=== PATIENT | male | born 1965 | race American Indian/Alaskan Native ===

== ENCOUNTER 2018-08-08 11:09 | Day surgery (SDC) | payer MEDICARE ==
[2018-08-08] MEDS ORDERED: HEPARIN/NS 5000 UNIT/500ML(CATH LAB) 1,000 ML IR ONE (14:29)
[2018-08-08] MEDS ORDERED: XYLOCAINE 2% INFILTRATI ONE (14:29)
[2018-08-08] MEDS ORDERED: NACL 0.9% 500 ML 500 ML ONE (14:30)
[2018-08-08] MEDS: SUBLIMAZE ONE ×2 (14:44→15:43)
[2018-08-08] MEDS: VERSED ONE ×2 (14:44→15:43)
[2018-08-08] MEDS: HEPARIN 10,000 UNITS/10 ML ONE ×2 (15:06→15:51)
--- NOTE | 2018-08-08 17:19 | Short Stay Summary ---
Short Stay Documentation Date of service: 08/08/18 Narrative H&P: See H&P - History H&P: obtained from office - Allergies and Medications Current Medications: Allergies No Known Allergies Allergy (Verified 08/06/13 00:06) Home Medications Medication Instructions Recorded Confirmed Last Taken Type Sevelamer HCl [Renagel] 800 mg PO TID #0 04/17/17 08/08/18 08/08/18 05:45 History Metoprolol [Lopressor TAB] 50 mg PO BID #60 tablet 07/06/17 08/08/18 08/08/18 05:45 Rx 50mg amLODIPine [Norvasc] 10 mg PO DAILY #30 tablet 07/06/17 08/08/18 08/08/18 05:45 Rx 10mg cloNIDine [Catapres] 0.2 mg PO BID #60 tablet 07/06/17 08/08/18 08/08/18 05:45 Rx hydrALAZINE [Apresoline TAB] 100 mg PO Q8HR #90 tab 07/06/17 08/08/18 08/08/18 05:45 Rx 100mg Aspirin [Adult Aspirin] 81 mg PO DAILY 08/08/18 08/08/18 08/07/18 History 81mg - Brief post op/procedure progress note Date of procedure: 08/08/18 Pre-op diagnosis: Complications of Dialysis Access Post-op diagnosis: same Procedure: 1. Access Right Arm AV Fistula with 7 Danish Sheath Venous 2. Diagnostic Fistulogram Central Venogram 3. Angioplasty of Right Subclavian vein with 12 x 40 Lutonix Drug Coated Balloon 4. Angioplasty of Right Innominate Vein with 12 x 40 Lutonix Drug Coated Balloon 5. Angioplasty of Superior Vena Cava with 12 x 40 Conquest Balloon 6. Radiologic Supervision and Interpretation Anesthesia: local, other (IV sedation) Surgeon: RANDALL DAVIS Estimated blood loss: minimal Pathology: none Condition: stable - Disposition Condition at discharge: Good Disposition: [id number] TO HOME OR SELFCARE Short Stay Discharge Plan Activity: other Wound: open to air, keep clean and dry, remove dressing (24 hours), other (remove suture in dialysis on Saturday by pulling the longer of the 2 strings)
--- NOTE | 2018-08-08 17:23 | Operative Report ---
Operative Report Operative Report: Date of Procedure: 08/08/2018 Pre-operative Diagnosis: Complications of Dialysis Access Post-operative Diagnosis: Same Procedure(s): 1. Access Right Arm AV Fistula with 7 Mauritian Sheath Venous 2. Diagnostic Fistulogram Central Venogram 3. Angioplasty of Right Subclavian vein with 12 x 40 Lutonix Drug Coated Balloon 4. Angioplasty of Right Innominate Vein with 12 x 40 Lutonix Drug Coated Balloon 5. Angioplasty of Superior Vena Cava with 12 x 40 Conquest Balloon 6. Radiologic Supervision and Interpretation Surgeon: Jef Byrd M.D. Sizer Machine: None Anesthesia: Local and IV Sedation EBL: Minimal Counts: Correct Complications: None Condition: Stable Findings: Occlusion of the right subclavian, innominate, and proximal superior vena cava. All vessels patent with less than 15% residual stenosis after intervention. Specimen: None Indication: The patient is a 52-year-old male with a history of end-stage renal disease on hemodialysis through a right arm Kandice fistula. 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 This is causing severe swelling of the right arm with ulceration over his fistula. He is in need of intervention to reduce the swelling and hopefully heal the ulceration in hopes of salvaging the fistula. He was given the risk, benefits, and alternative procedures and consented to the procedure. Description of Procedure: The patient was brought into the wheelabrator operator and laid in supine position. After a timeout was performed his right arm was prepped and draped in normal sterile fashion. Lidocaine was used to anesthetize the skin overlying the fistula in the proximal forearm and micropuncture technique was used to access the fistula towards the venous outflow. A 7 Mauritian 4 cm sheath was then placed by Seldinger technique. I performed a fistulogram revealing the area of occlusion of the right subclavian vein. The fistula was patent without any flow-limiting stenosis. Both the basilic vein and cephalic veins were patent without any flow-limiting stenosis. There were collaterals through the neck that appeared to fill the distal superior vena cava to provide the outflow for the fistula. I advanced a 0.035 Glidewire and vertebral catheter to the level of the occlusion. I exchanged the vertebral catheter for a 6 Mauritian JR4 guide catheter and 5 Mauritian Navicross catheter and made multiple attempts with various wires to cross the occluded vessels without success. I eventually exchanged the short 7 Mauritian sheath for a 7 Mauritian 65 cm destination sheath which I advanced to the level of the occlusion. I then reinserted the JR4 guide catheter with the Navicross catheter as well as a 0.035 Advantage wire and was eventually able to traverse the occluded subclavian vein as well as the occluded right innominate vein and reentered in the superior vena cava which was confirmed by venogram. I advanced the wire and catheter into the inferior vena cava and then was able to predilate the occluded subclavian vein with a 8 x 80 Evercross balloon. I initially attempted to advance this into the innominate vein however the occlusion was too tight to advance the balloon so I reinserted the Navicross catheter and exchanged the Advantage wire for a 0.018 V18 wire. I then predilated the right innominate vein and distal superior vena cava with a 7 x 100 Benjamin balloon. After predilated the vessels I ballooned all the vessels with a 12 x 40 Conquest balloon. The superior vena cava had less than 15% residual stenosis however the innominate vein as well as the subclavian had approximately 50% residual stenosis so I exchanged the 7 Mauritian sheath for a 9 Mauritian sheath and performed additional angioplasty with 12 x 40 Lutonix Drug Coated Balloons in both vessels with 3 minute inflations. This resulted in less than 15% residual stenosis in both vessels. At this point I removed the balloon and wire and used 3-0 Ethilon in a slipknot fashion to close the entry site after removing the sheath. I then placed a sterile dressing over the entry site and the patient was transported to the recovery area in stable condition.
[2018-08-08 18:44] VITALS: BP 152/84
== END 2018-08-08 18:00 | disposition home or self-care (01) ==
LOC: CATHLABREC 11:09
PROVIDERS: ATTEND Surgery Vascular Surgery
DX: T82.590A Other mechanical complication of surgically created arteriovenous fistula, initial encounter (principal); I13.2 Hypertensive heart and chronic kidney disease with heart failure and with stage 5 chronic kidney disease, or end stage renal disease; I50.9 Heart failure, unspecified; N18.6 End stage renal disease; I25.2 Old myocardial infarction; G47.30 Sleep apnea, unspecified; E66.9 Obesity, unspecified; Z98.890 Other specified postprocedural states; Z79.82 Long term (current) use of aspirin; Z79.899 Other long term (current) drug therapy
CPT/HCPCS: 36415; 36902; 36907; 84132; 99156; 99157; C1725; C1769; C1887; C1894; C2623; J1644; J2250; J3010; J7040; Q9967

== ENCOUNTER 2018-09-22 13:42 | Inpatient (IN) | payer MEDICARE ==
--- NOTE | 2018-09-22 13:52 | Event Note ---
ED Screening Note ED Screening Note: pt states he had a blockage in the artery in his right arm, states had a surgical procedure a month ago states now has an infection in the RUE at his fistula site states he was called by [facility] for positive blood cultures from last week no fever states there was some drainage from the fistula site but has since stopped last had dialysis on 09/19/18 This initial assessment/diagnostic orders/clinical plan/treatment(s) is/are subject to change based on patients health status, clinical progression and re- assessment by fellow clinical providers in the ED. Further treatment and workup at subsequent clinical providers discretion. Patient/guardian urged not to elope from the ED as their condition may be serious if not clinically assessed and managed. Initial orders include: labs
[2018-09-22 14:43] LABS: Basophils # (Auto) 0.1 K/mm3 (0.0-0.1); Basophils % (Auto) 1.3 % (0.0-1.8); Eosinophils # (Auto) 0.4 K/mm3 (0.0-0.4); Eosinophils % (Auto) 6.4 % (0.0-4.3); Hematocrit 33.2 % (35.5-45.6); Lymphocytes # (Auto) 0.7 K/mm3 (1.2-5.4); Lymphocytes % (Auto) 11.6 % (13.4-35.0); Mean Corpuscular HGB Conc 33 % (32-34); Mean Corpuscular Volume 104 fl (84-94); Monocytes # (Auto) 0.6 K/mm3 (0.0-0.8); Monocytes % (Auto) 9.3 % (0.0-7.3); Platelet Count 171 K/mm3 (140-440); Red Cell Distribution Width 17.1 % (13.2-15.2)
--- NOTE | 2018-09-22 19:02 | Emergency Department Report ---
- General Chief Complaint: Extremity Injury, Upper Stated Complaint: INFECTION Time Seen by Provider: 09/22/18 13:49 Source: patient Mode of arrival: Ambulatory Limitations: No Limitations - History of Present Illness Initial Comments: Mr. Byrd is a very pleasant 53-year-old male with history of hypertension, end- stage renal disease, congestive heart failure. He last received dialysis on Saturday. He receives dialysis at [facility], [place], operated by [facility]. His fan balancer is Dr. Lilia Lawson. He has an infected right forearm hemodialysis access. The access was placed here at our facility. Patient was told that he had +blood cultures by dialysis nurse,. Initially had a plan to have the Vas-Cath placed at the access center. Considering infected HD access, he was referred by nephrology group to the emergency department for further treatment and admission. His fan balancer is Dr. Hortencia Hartman I reviewed electronic medical record. Vascular surgeon Dr. Jef Byrd performed angioplasty of the right subclavian and innominate veins. Also angioplasty of the SVC was performed. The procedure was performed 08/08/2018. -: Gradual, days(s) (3-4) Location: other (right foream) Place: home Context: other (dialysis infection) - Related Data Home Medications Medication Instructions Recorded Confirmed Last Taken Sevelamer HCl [Renagel] 800 mg PO TID #0 04/17/17 08/08/18 08/08/18 05:45 Aspirin [Adult Aspirin] 81 mg PO DAILY 08/08/18 08/08/18 08/07/18 81mg Previous Rx's Medication Instructions Recorded Last Taken Type Metoprolol [Lopressor TAB] 50 mg PO BID #60 tablet 07/06/17 08/08/18 05:45 Rx 50mg amLODIPine [Norvasc] 10 mg PO DAILY #30 tablet 07/06/17 08/08/18 05:45 Rx 10mg cloNIDine [Catapres] 0.2 mg PO BID #60 tablet 07/06/17 08/08/18 05:45 Rx hydrALAZINE [Apresoline TAB] 100 mg PO Q8HR #90 tab 07/06/17 08/08/18 05:45 Rx 100mg Allergies Allergy/AdvReac Type Severity Reaction Status Date / Time No Known Allergies Allergy Verified 08/06/13 00:06 ED Review of Systems ROS: Stated complaint: INFECTION Other details as noted in HPI Comment: All other systems reviewed and negative Constitutional: denies: fever, malaise Respiratory: denies: cough Cardiovascular: denies: chest pain ED Past Medical Hx - Past Medical History Previous Medical History?: Yes Hx Hypertension: Yes Hx Congestive Heart Failure: Yes Hx Diabetes: No Hx Renal Disease: Yes (dialysis MWF) Hx Asthma: No Hx COPD: No Additional medical history: arterial blockage 08/2018 - Surgical History Past Surgical History?: Yes Additional Surgical History: fistula placement- right forearm - Social History Smoking Status: Never Smoker Substance Use Type: None - Medications Home Medications: Home Medications Medication Instructions Recorded Confirmed Last Taken Type Sevelamer HCl [Renagel] 800 mg PO TID #0 04/17/17 08/08/18 08/08/18 05:45 History Metoprolol [Lopressor TAB] 50 mg PO BID #60 tablet 07/06/17 08/08/18 08/08/18 05:45 Rx 50mg amLODIPine [Norvasc] 10 mg PO DAILY #30 tablet 07/06/17 08/08/18 08/08/18 05:45 Rx 10mg cloNIDine [Catapres] 0.2 mg PO BID #60 tablet 07/06/17 08/08/18 08/08/18 05:45 Rx hydrALAZINE [Apresoline TAB] 100 mg PO Q8HR #90 tab 07/06/17 08/08/18 08/08/18 05:45 Rx 100mg Aspirin [Adult Aspirin] 81 mg PO DAILY 08/08/18 08/08/18 08/07/18 History 81mg ED Physical Exam - General Limitations: No Limitations General appearance: alert, in no apparent distress - Head Head exam: Present: atraumatic, normocephalic - Eye Eye exam: Present: normal appearance - ENT ENT exam: Present: mucous membranes moist - Neck Neck exam: Present: normal inspection - Respiratory Respiratory exam: Present: normal lung sounds bilaterally. Absent: respiratory distress, wheezes, rales, rhonchi - Cardiovascular Cardiovascular Exam: Present: regular rate, normal rhythm, normal heart sounds. Absent: systolic murmur, diastolic murmur, rubs, gallop - GI/Abdominal GI/Abdominal exam: Present: soft, normal bowel sounds. Absent: distended, tenderness, guarding, rebound - Neurological Exam Neurological exam: Present: alert, oriented X3 - Psychiatric Psychiatric exam: Present: normal affect, normal mood - Skin Skin exam: Present: warm, other (2 ulcers overlying right forearm HD access with purulent drainage). Absent: rash ED Course Vital Signs 09/22/18 09/22/18 09/22/18 13:50 16:34 17:34 Temperature 97.5 F L 97.4 F L Pulse Rate 79 68 65 Respiratory 20 20 Rate Blood Pressure 168/98 155/88 O2 Sat by Pulse 98 100 Oximetry 09/22/18 09/22/18 18:00 18:30 Temperature Pulse Rate 70 67 Respiratory 17 12 Rate Blood Pressure 165/110 154/92 O2 Sat by Pulse Oximetry ED Medical Decision Making - Lab Data Result diagrams: 09/22/18 14:27 09/22/18 14:27 - Medical Decision Making Mr. Byrd presents with infected AV hemodialysis access. I have consulted vascular surgery service. I spoke with Dr. Caballero. Contacted Dr. Resendez fan balancer who covers his personal fan balancer Dr. Hartman Admitted to the hospital service. Zosyn and vancomycin instituted in the emergency department. Admitted to the hospitalist service. Dr. Resendez will address hyperkalemia with medication while awaiting vascular access to be placed tomorrow. Critical care attestation.: If time is entered above; I have spent that time in minutes in the direct care of this critically ill patient, excluding procedure time. ED Disposition Clinical Impression: Infection of AV graft for dialysis, ESRD (end stage renal disease), Hyperkalemia Disposition: OP ADMIT IP TO THIS HOSP Is pt being admited?: Yes Does the pt Need Aspirin: No Condition: Stable
[2018-09-22] MEDS ORDERED: VANCOMYCIN PHARMACY TO DOSE IV SCH (20:00)
[2018-09-22] MEDS ORDERED: VANCOMYCIN 2,000 MG in NACL 0.9% 500 ML 500 ML IV ONE (20:12)
[2018-09-22] MEDS: ZOSYN/NS 2.25 GM/50ML 2.25 GM/50 ML BAG IV SCH (20:31)
[2018-09-22] MEDS ORDERED: D50W (25GM) Syringe IV ONE (20:41)
[2018-09-22] MEDS ORDERED: HumuLIN R IV ONE (20:41)
[2018-09-22] MEDS ORDERED: CALCIUM GLUCONATE 2,000 MG in NACL 0.9% 100 ML IV ONE (20:41)
[2018-09-22] MEDS ORDERED: KIONEX PO ONE (20:41)
[2018-09-22] MEDS ORDERED: ZOFRAN IV PRN (21:34)
[2018-09-22] MEDS ORDERED: SODIUM CHLORIDE FLUSH SYRINGE 10 ML IV PRN (21:34)
--- NOTE | 2018-09-22 21:47 | History and Physical Report ---
History of Present Illness Date of examination: 09/22/18 Date of admission: 09/22/2018 Chief complaint: Right forearm fistula infection History of present illness: Patient is a 53-year-old male with PMHx of hypertension, ESRD on HD, CHF, acid reflux, who presents to the ER with complaint of right forearm fistula infection. Pt states that the infection was noted on Saturday while he went for his HD treatment, he had a blood culture and was started on antibiotics. Patient states that the infection got worse today, it has a foul smell and purulent drainage, he was sent to the ER by his nephrology for further evaluation. Patient denies any fever, denies chills, denies nausea, denies pain in the affected area. Patient was evaluated and treated in the ER, Vascular surgery was consulted for revision of the right forearm infected fistula. Past History Past Medical History: anemia, ESRD, GERD, hypertension, hyperlipidemia, renal failure, other (CHF) Past Surgical History: Other (left arm fistula) Social history: no significant social history Family history: no significant family history Medications and Allergies Allergies Allergy/AdvReac Type Severity Reaction Status Date / Time No Known Allergies Allergy Verified 08/06/13 00:06 Home Medications Medication Instructions Recorded Confirmed Last Taken Type Metoprolol [Lopressor TAB] 50 mg PO BID #60 tablet 07/06/17 09/22/18 09/22/18 Rx 50 amLODIPine [Norvasc] 10 mg PO DAILY #30 tablet 07/06/17 09/22/18 1 Day Ago Rx ~09/21/18 10 mg Aspirin [Adult Aspirin] 81 mg PO DAILY 08/08/18 09/22/18 09/22/18 History cloNIDine [Catapres] 0.3 mg PO BID 09/22/18 09/22/18 09/22/18 History .3 Active Meds: Active Medications Vancomycin HCl 2,000 mg/ (Sodium Chloride) 540 mls @ 270 mls/hr IV ONCE ONE; Protocol Stop: 09/22/18 22:11 Piperacillin Sod/Tazobactam Sod (Zosyn/Ns 2.25 Gm/50ml) 2.25 gm in 50 mls @ 100 mls/hr IV Q8H [facility]; Protocol Last Admin: 09/22/18 20:31 Dose: 100 mls/hr Documented by: Review of Systems Integumentary: wounds Psychiatric: anxiety Exam - Constitutional Vitals: Temp Pulse Resp BP Pulse Ox 97.4 F L 67 12 154/92 100 09/22/18 16:34 09/22/18 18:30 09/22/18 18:30 09/22/18 18:30 09/22/18 16:34 General appearance: Present: no acute distress - EENT Eyes: Present: EOM intact ENT: hearing intact, oropharyngeal erythema - Neck Neck: Present: normal ROM - Respiratory Respiratory effort: normal Respiratory: bilateral: CTA - Cardiovascular Rhythm: regular Heart Sounds: Present: S1 & S2 - Extremities Extremities: no ischemia Extremity abnormal: edema Peripheral Pulses: within normal limits - Abdominal General gastrointestinal: Present: non-tender, non-distended Male genitourinary: Present: deferred - Rectal Rectal Exam: deferred - Integumentary Integumentary: Present: warm, dry - Musculoskeletal Musculoskeletal: strength equal bilaterally - Psychiatric Psychiatric: appropriate mood/affect - Neurologic Neurologic: moves all extremities Results - Labs CBC & Chem 7: 09/22/18 14:27 09/22/18 14:27 Labs: Laboratory Last Values WBC 6.2 K/mm3 (4.5-11.0) 09/22/18 14:27 RBC 3.20 M/mm3 (3.65-5.03) L 09/22/18 14:27 Hgb 11.0 gm/dl (11.8-15.2) L 09/22/18 14:27 Hct 33.2 % (35.5-45.6) L 09/22/18 14:27 MCV 104 fl (84-94) H 09/22/18 14:27 MCH 34 pg (28-32) H 09/22/18 14:27 MCHC 33 % (32-34) 09/22/18 14:27 RDW 17.1 % (13.2-15.2) H 09/22/18 14:27 Plt Count 171 K/mm3 (140-440) 09/22/18 14:27 Lymph % (Auto) 11.6 % (13.4-35.0) L 09/22/18 14:27 [place] % (Auto) 9.3 % (0.0-7.3) H 09/22/18 14:27 Eos % (Auto) 6.4 % (0.0-4.3) H 09/22/18 14:27 Baso % (Auto) 1.3 % (0.0-1.8) 09/22/18 14:27 Lymph # 0.7 K/mm3 (1.2-5.4) L 09/22/18 14:27 [place] # 0.6 K/mm3 (0.0-0.8) 09/22/18 14:27 Eos # 0.4 K/mm3 (0.0-0.4) 09/22/18 14:27 Baso # 0.1 K/mm3 (0.0-0.1) 09/22/18 14:27 Seg Neutrophils % 71.4 % (40.0-70.0) H 09/22/18 14:27 Seg Neutrophils # 4.4 K/mm3 (1.8-7.7) 09/22/18 14:27 Sodium 140 mmol/L (137-145) 09/22/18 14:27 Potassium 6.0 mmol/L (3.6-5.0) H 09/22/18 14:27 Chloride 96.3 mmol/L (98-107) L 09/22/18 14:27 Carbon Dioxide 24 mmol/L (22-30) 09/22/18 14:27 26 mmol/L 09/22/18 14:27 BUN 95 mg/dL (9-20) H 09/22/18 14:27 22.8 mg/dL (0.8-1.5) H 09/22/18 14:27 Estimated GFR 3 ml/min 09/22/18 14:27 4 % 09/22/18 14:27 Glucose 102 mg/dL (75-100) H 09/22/18 14:27 Lactic Acid 0.50 mmol/L (0.7-2.0) L 09/22/18 14:27 Calcium 8.0 mg/dL (8.4-10.2) L 09/22/18 14:27 Assessment and Plan Assessment and plan: 1. Right forearm fistula infection 2. Hypertension (controlled) 3. ESRD on HD 3. CHF (stable) Plan: Admit to med telemetry floor. Menstruation Consults nephrology for HD management assessment Consults vascular surgery for evaluation Continue Zosyn and Vancomycin Resume home meds DVT prophylaxis Advance Directives: Yes VTE prophylaxis?: Chemical Plan of care discussed with patient/family: Yes
[2018-09-22] MEDS ORDERED: ZOSYN/NS 4.5GM/100ML 4.5 GM/100 ML VIAL IV SCH (22:00)
[2018-09-22] MEDS: TYLENOL PO PRN (23:45)
[2018-09-23] MEDS: SODIUM CHLORIDE FLUSH SYRINGE 10 ML IV SCH ×4 (03:05→23:05)
[2018-09-23] MEDS: PERCOCET 5/325 PO PRN ×3 (03:20→17:13)
[2018-09-23] MEDS: ZOSYN/NS 2.25 GM/50ML 2.25 GM/50 ML BAG IV SCH ×3 (05:04→21:22)
[2018-09-23 07:57] LABS: Calcium 8.3 mg/dL (8.4-10.2)
--- NOTE | 2018-09-23 08:24 | Progress Note ---
Assessment and Plan Assessment and plan: Patient is a 53-year-old male with PMHx of hypertension, ESRD on HD, CHF, acid reflux, who presents to the ER with complaint of right forearm fistula infection. Pt states that the infection was noted on Saturday while he went for his HD treatment, he had a blood culture and was started on antibiotics. Patient states that the infection got worse today, it has a foul smell and purulent drainage, he was sent to the ER by his nephrology for further evaluation. Patient denies any fever, denies chills, denies nausea, denies pain in the affected area. Patient was evaluated and treated in the ER, Vascular surgery was consulted for revision of the right forearm infected fistula. --Infected AV graft; Empiric antibiotics, vascular consultation, vascular intervention today cultures, ID consult if needed --Hypertensive urgency; resume home antihypertensives When necessary hydralazine Closely monitor blood pressures --End-stage renal disease on hemodialysis; Nephrology and vascular consultation Hemodialysis per schedule --DVT prophylaxis; heparin ,renal dose --Obesity; BMI 31.8, advised weight reduction and medically stable --Hyperkalemia; calcium gluconate, Kayexalate, hemodialysis per schedule --Metabolic acidosis; secondary to end-stage renal disease, hemodialysis --Full CODE STATUS; Monitor closely and adjust management as needed Plan of care reviewed with the patient and his nurse History Interval history: Patient seen and examined medical records reviewed Admitted with infected AV graft, missed hemodialysis Scheduled for vascular procedure today Nephrology consultation Patient is alert awake oriented Vital signs reviewed Hospitalist Physical - Constitutional Vitals: Temp Pulse Resp BP Pulse Ox 97.7 F 83 18 180/117 96 09/23/18 07:52 09/23/18 07:52 09/23/18 07:52 09/23/18 07:52 09/23/18 07:52 General appearance: Present: no acute distress, well-nourished, obese - EENT Eyes: Present: PERRL, EOM intact - Neck Neck: Present: supple, normal ROM - Respiratory Respiratory effort: normal Respiratory: bilateral: diminished, rales, negative: rhonchi, wheezing - Cardiovascular Rhythm: regular Heart Sounds: Present: S1 & S2 - Extremities Extremities: abnormal (right AV graft infected, swollen) Extremity abnormal: edema - Abdominal General gastrointestinal: soft, non-tender, non-distended, normal bowel sounds - Integumentary Integumentary: Present: clear, warm - Psychiatric Psychiatric: appropriate mood/affect, cooperative - Neurologic Neurologic: CNII-XII intact, moves all extremities Results - Labs CBC & Chem 7: 09/22/18 14:27 09/23/18 05:29 Labs: Laboratory Last Values WBC 6.2 K/mm3 (4.5-11.0) 09/22/18 14:27 RBC 3.20 M/mm3 (3.65-5.03) L 09/22/18 14:27 Hgb 11.0 gm/dl (11.8-15.2) L 09/22/18 14:27 Hct 33.2 % (35.5-45.6) L 09/22/18 14:27 MCV 104 fl (84-94) H 09/22/18 14:27 MCH 34 pg (28-32) H 09/22/18 14:27 MCHC 33 % (32-34) 09/22/18 14:27 RDW 17.1 % (13.2-15.2) H 09/22/18 14:27 Plt Count 171 K/mm3 (140-440) 09/22/18 14:27 Lymph % (Auto) 11.6 % (13.4-35.0) L 09/22/18 14:27 [place] % (Auto) 9.3 % (0.0-7.3) H 09/22/18 14:27 Eos % (Auto) 6.4 % (0.0-4.3) H 09/22/18 14:27 Baso % (Auto) 1.3 % (0.0-1.8) 09/22/18 14:27 Lymph # 0.7 K/mm3 (1.2-5.4) L 09/22/18 14:27 [place] # 0.6 K/mm3 (0.0-0.8) 09/22/18 14:27 Eos # 0.4 K/mm3 (0.0-0.4) 09/22/18 14:27 Baso # 0.1 K/mm3 (0.0-0.1) 09/22/18 14:27 Seg Neutrophils % 71.4 % (40.0-70.0) H 09/22/18 14:27 Seg Neutrophils # 4.4 K/mm3 (1.8-7.7) 09/22/18 14:27 Sodium 142 mmol/L (137-145) 09/23/18 05:29 Potassium 5.8 mmol/L (3.6-5.0) H 09/23/18 05:29 Chloride 95.2 mmol/L (98-107) L 09/23/18 05:29 Carbon Dioxide 19 mmol/L (22-30) L 09/23/18 05:29 34 mmol/L 09/23/18 05:29 BUN 99 mg/dL (9-20) H 09/23/18 05:29 23.0 mg/dL (0.8-1.5) H 09/23/18 05:29 Estimated GFR 3 ml/min 09/23/18 05:29 4 % 09/23/18 05:29 Glucose 55 mg/dL (75-100) L 09/23/18 05:29 Lactic Acid 0.50 mmol/L (0.7-2.0) L 09/22/18 14:27 Calcium 8.3 mg/dL (8.4-10.2) L 09/23/18 05:29 Active Medications - Current Medications Current Medications: Generic Name Dose Route Start Last Admin Trade Name Freq PRN Reason Stop Dose Admin Acetaminophen 650 mg 09/22/18 21:34 09/22/18 23:45 Tylenol PO 650 mg Q4H PRN Administration Pain MILD(1-3)/Fever >100.5/MENDOZA Amlodipine Besylate 10 mg 09/23/18 10:00 Norvasc PO DAILY [facility] Clonidine HCl 0.3 mg 09/23/18 10:00 Catapres PO BID [facility] Hydralazine HCl 20 mg 09/23/18 08:21 Apresoline IV Q4HR PRN Hypertension Piperacillin Sod/Tazobactam Sod 2.25 gm in 50 mls @ 100 mls/hr 09/22/18 20:30 09/23/18 05:04 Zosyn/Ns 2.25 Gm/50ml IV 100 mls/hr Q8H STEPAN Administration Protocol Metoprolol Tartrate 50 mg 09/23/18 10:00 Lopressor PO BID [facility] Ondansetron HCl 4 mg 09/22/18 21:34 Zofran IV Q8H PRN Nausea And Vomiting Oxycodone/Acetaminophen 1 tab 09/23/18 03:10 09/23/18 03:20 Percocet 5/325 PO 1 tab Q4H PRN Administration Pain, Moderate (4-6) Sodium Chloride 10 ml 09/22/18 22:00 09/23/18 03:05 Sodium Chloride Flush Syringe 10 Ml IV 10 ml BID STEPAN Administration Sodium Chloride 10 ml 09/22/18 21:34 Sodium Chloride Flush Syringe 10 Ml IV PRN PRN LINE FLUSH
[2018-09-23] MEDS: LOPRESSOR PO SCH ×3 (08:52→23:05)
[2018-09-23] MEDS: NORVASC PO SCH ×2 (08:52→10:00)
[2018-09-23] MEDS: APRESOLINE IV PRN ×2 (08:53→17:13)
[2018-09-23] MEDS: CATAPRES PO SCH ×5 (08:53→23:05)
--- NOTE | 2018-09-23 09:46 | Consultation ---
History of Present Illness - Reason for Consult Consult date: 09/23/18 Requesting physician: JANICE CONKLIN - History of Present Illness The patient is a 53 year old male who is known to us. He is currently on dialysis through a right arm radiocephalic arteriovenous fistula. He has a history of central venous occlusion and recently underwent angioplasty of his right subclavian vein, innominate vein, and superior vena cava in July 2018 to relieve severe right arm swelling. he states that the swelling resolved however that only lasted approximately 1 month. He presents with complaints of several days of purulent drainage fro the ulcerated skin overlying his fistula. He also reports positive blood cultures, from the dialysis center. He complains of pain in his forearm. He has no other complaints at this time. Past History Past Medical History: anemia, ESRD, GERD, hypertension, hyperlipidemia, renal failure, other (CHF) Past Surgical History: Other (left arm fistula) Social history: no significant social history Family history: no significant family history Medications and Allergies Allergies Allergy/AdvReac Type Severity Reaction Status Date / Time No Known Allergies Allergy Verified 08/06/13 00:06 Home Medications Medication Instructions Recorded Confirmed Last Taken Type Metoprolol [Lopressor TAB] 50 mg PO BID #60 tablet 07/06/17 09/22/18 09/22/18 Rx 50 amLODIPine [Norvasc] 10 mg PO DAILY #30 tablet 07/06/17 09/22/18 1 Day Ago Rx ~09/21/18 10 mg Aspirin [Adult Aspirin] 81 mg PO DAILY 08/08/18 09/22/18 09/22/18 History cloNIDine [Catapres] 0.3 mg PO BID 09/22/18 09/22/18 09/22/18 History .3 Active Meds: Active Medications Acetaminophen (Tylenol) 650 mg PO Q4H PRN PRN Reason: Pain MILD(1-3)/Fever >100.5/MENDOZA Last Admin: 09/22/18 23:45 Dose: 650 mg Documented by: Amlodipine Besylate (Norvasc) 10 mg PO DAILY [facility] Last Admin: 09/23/18 08:52 Dose: 10 mg Documented by: Clonidine HCl (Catapres) 0.1 mg PO BID [facility] Last Admin: 09/23/18 08:53 Dose: 0.1 mg Documented by: Clonidine HCl (Catapres) 0.2 mg PO BID [facility] Hydralazine HCl (Apresoline) 20 mg IV Q4H PRN PRN Reason: Hypertension Last Admin: 09/23/18 08:53 Dose: 20 mg Documented by: Piperacillin Sod/Tazobactam Sod (Zosyn/Ns 2.25 Gm/50ml) 2.25 gm in 50 mls @ 100 mls/hr IV Q8H [facility]; Protocol Last Admin: 09/23/18 05:04 Dose: 100 mls/hr Documented by: Metoprolol Tartrate (Lopressor) 50 mg PO BID [facility] Last Admin: 09/23/18 08:52 Dose: 50 mg Documented by: Ondansetron HCl (Zofran) 4 mg IV Q8H PRN PRN Reason: Nausea And Vomiting Oxycodone/Acetaminophen (Percocet 5/325) 1 tab PO Q4H PRN PRN Reason: Pain, Moderate (4-6) Last Admin: 09/23/18 08:53 Dose: 1 tab Documented by: Sodium Chloride (Sodium Chloride Flush Syringe 10 Ml) 10 ml IV BID [facility] Last Admin: 09/23/18 08:54 Dose: 10 ml Documented by: Sodium Chloride (Sodium Chloride Flush Syringe 10 Ml) 10 ml IV PRN PRN PRN Reason: LINE FLUSH Review of Systems All systems: negative Exam - Constitutional Vitals: Temp Pulse Resp BP Pulse Ox 97.7 F 83 18 180/117 96 09/23/18 07:52 09/23/18 08:53 09/23/18 07:52 09/23/18 08:53 09/23/18 07:52 General appearance: Present: no acute distress - Respiratory Respiratory effort: normal - Cardiovascular Rhythm: regular - Extremities Extremity abnormal: edema, ulceration (right forearm overlying the mesfin fis j carlos with some purulent drainage), other (palpable thrill in fistula) - Abdominal General gastrointestinal: Present: soft Results - Labs CBC & Chem 7: 09/22/18 14:27 09/23/18 05:29 Labs: Abnormal lab results 09/22/18 09/22/18 09/22/18 Range/Units 14:27 14:27 14:27 RBC 3.20 L (3.65-5.03) M/mm3 Hgb 11.0 L (11.8-15.2) gm/dl Hct 33.2 L (35.5-45.6) % MCV 104 H (84-94) fl MCH 34 H (28-32) pg RDW 17.1 H (13.2-15.2) % Lymph % (Auto) 11.6 L (13.4-35.0) % [place] % (Auto) 9.3 H (0.0-7.3) % Eos % (Auto) 6.4 H (0.0-4.3) % Lymph # 0.7 L (1.2-5.4) K/mm3 Seg Neutrophils % 71.4 H (40.0-70.0) % Potassium 6.0 H (3.6-5.0) mmol/L Chloride 96.3 L (98-107) mmol/L Carbon Dioxide (22-30) mmol/L BUN 95 H (9-20) mg/dL Creatinine 22.8 H (0.8-1.5) mg/dL Glucose 102 H (75-100) mg/dL Lactic Acid 0.50 L (0.7-2.0) mmol/L Calcium 8.0 L (8.4-10.2) mg/dL 09/23/18 Range/Units 05:29 RBC (3.65-5.03) M/mm3 Hgb (11.8-15.2) gm/dl Hct (35.5-45.6) % MCV (84-94) fl MCH (28-32) pg RDW (13.2-15.2) % Lymph % (Auto) (13.4-35.0) % [place] % (Auto) (0.0-7.3) % Eos % (Auto) (0.0-4.3) % Lymph # (1.2-5.4) K/mm3 Seg Neutrophils % (40.0-70.0) % Potassium 5.8 H (3.6-5.0) mmol/L Chloride 95.2 L (98-107) mmol/L Carbon Dioxide 19 L (22-30) mmol/L BUN 99 H (9-20) mg/dL Creatinine 23.0 H (0.8-1.5) mg/dL Glucose 55 L (75-100) mg/dL Lactic Acid (0.7-2.0) mmol/L Calcium 8.3 L (8.4-10.2) mg/dL Assessment and Plan The patient presents with recurrent swelling in his right arm and purulent drainage from his right arm ulceration overlyinig the fistula. He will need a vascath placed today for dialysis. Additionally I will perform a fistulagram with central venogram with the plan to perform angioplasty and possible stenting of the central venous system, to decompress the arm. Tomorrow I will take him to the OR to ligate the mesfin fistula and debride all necrotic skin and create a brachiocephalic fistula. The upper arm cephalic vein should be ready for access as it has been running as a fistula for years. I discussed this plan with the patient who expressed understanding and agrees.
[2018-09-23] MEDS ORDERED: CATAPRES PO SCH (10:00)
[2018-09-23] MEDS ORDERED: CALCIUM GLUCONATE 2,000 MG in NACL 0.9% 100 ML IV ONE (11:32)
[2018-09-23] MEDS: TYLENOL PO PRN (16:04)
[2018-09-23] MEDS ORDERED: NACL 0.9% 250ML 250 ML ONE (18:21)
[2018-09-23] MEDS ORDERED: HEPARIN 10,000 UNITS/10 ML ONE (18:21)
[2018-09-23] MEDS ORDERED: HEPARIN/NS 5000 UNIT/500ML(CATH LAB) 1,000 ML IR ONE (18:21)
[2018-09-23] MEDS: SUBLIMAZE ONE ×2 (18:31→18:49)
[2018-09-23] MEDS: VERSED ONE ×2 (18:31→18:49)
[2018-09-23] MEDS: XYLOCAINE 2% INFILTRATI ONE ×2 (18:33→19:04)
[2018-09-23] MEDS ORDERED: NORMODYNE IV ONE (18:39)
[2018-09-23] MEDS ORDERED: APRESOLINE ONE (19:15)
[2018-09-23] MEDS ORDERED: NACL 0.9% 100 ML IV PRN (19:18)
--- NOTE | 2018-09-23 19:20 | Consultation ---
History of Present Illness - Reason for Consult Consult date: 09/23/18 end stage renal disease, hyperkalemia - History of Present Illness The patient is a 53 YO male with history significant for Hypertension, ESRD on HD (MWF), CHF, GERD and Anemia who presented to [facility] ED with complaint of ulcer, pain and swelling around the right forearm fistula. Pt states that the R UE swelling was started about a month ago. The ulceration / infection was noted last Saturday. He had a blood culture and was started on antibiotics at the hemodialysis center. He was not able to get hemodialysis yesterday as the infection got worse with foul smelling purulent drainage. He was sent to the ER for further evaluation. Patient denies any fever, chills, N, V, D, abd pain, cp or sob. Patient was evaluated and treated in the ED and admitted for revision of the right forearm infected fistula and placement of dialysis catheter. His potassium was 6 yesterday. Nephrology was consulted for further evaluation. Past History Past Medical History: anemia, ESRD, GERD, hypertension, hyperlipidemia, renal failure, other (CHF) Past Surgical History: Other (left arm fistula) Social history: no significant social history Family history: no significant family history Medications and Allergies Allergies Allergy/AdvReac Type Severity Reaction Status Date / Time No Known Allergies Allergy Verified 08/06/13 00:06 Home Medications Medication Instructions Recorded Confirmed Last Taken Type Metoprolol [Lopressor TAB] 50 mg PO BID #60 tablet 07/06/17 09/22/18 09/22/18 Rx 50 amLODIPine [Norvasc] 10 mg PO DAILY #30 tablet 07/06/17 09/22/18 1 Day Ago Rx ~09/21/18 10 mg Aspirin [Adult Aspirin] 81 mg PO DAILY 08/08/18 09/22/18 09/22/18 History cloNIDine [Catapres] 0.3 mg PO BID 09/22/18 09/22/18 09/22/18 History .3 Active Meds: Active Medications Acetaminophen (Tylenol) 650 mg PO Q4H PRN PRN Reason: Pain MILD(1-3)/Fever >100.5/MENDOZA Last Admin: 09/23/18 16:04 Dose: 650 mg Documented by: Amlodipine Besylate (Norvasc) 10 mg PO DAILY [facility] Last Admin: 09/23/18 10:00 Dose: Not Given Documented by: Clonidine HCl (Catapres) 0.1 mg PO BID [facility] Last Admin: 09/23/18 10:00 Dose: Not Given Documented by: Clonidine HCl (Catapres) 0.2 mg PO BID [facility] Last Admin: 09/23/18 13:31 Dose: 0.2 mg Documented by: Hydralazine HCl (Apresoline) 20 mg IV Q4H PRN PRN Reason: Hypertension Last Admin: 09/23/18 17:13 Dose: 20 mg Documented by: Piperacillin Sod/Tazobactam Sod (Zosyn/Ns 2.25 Gm/50ml) 2.25 gm in 50 mls @ 100 mls/hr IV Q8H [facility]; Protocol Last Admin: 09/23/18 13:32 Dose: 100 mls/hr Documented by: Metoprolol Tartrate (Lopressor) 50 mg PO BID [facility] Last Admin: 09/23/18 10:00 Dose: Not Given Documented by: Ondansetron HCl (Zofran) 4 mg IV Q8H PRN PRN Reason: Nausea And Vomiting Oxycodone/Acetaminophen (Percocet 5/325) 1 tab PO Q4H PRN PRN Reason: Pain, Moderate (4-6) Last Admin: 09/23/18 17:13 Dose: 1 tab Documented by: Sodium Chloride (Sodium Chloride Flush Syringe 10 Ml) 10 ml IV BID [facility] Last Admin: 09/23/18 10:00 Dose: Not Given Documented by: Sodium Chloride (Sodium Chloride Flush Syringe 10 Ml) 10 ml IV PRN PRN PRN Reason: LINE FLUSH Review of Systems Constitutional: no weight loss, no weight gain, no fever, no chills, no anorexia, no weakness Cardiovascular: edema, high blood pressure, no chest pain, no orthopnea, no syncope, no lightheadedness, no shortness of breath, no leg edema Respiratory: no cough, no hemoptysis, no shortness of breath, no home oxygen Gastrointestinal: no abdominal pain, no nausea, no vomiting, no diarrhea Genitourinary Male: no dysuria, no hematuria Musculoskeletal: no muscle weakness, no muscle cramps Integumentary: redness, sores, wounds Neurological: no paralysis, no weakness, no seizures, no syncope, no convulsions, no aphasia, no change in speech, no change in mentation, no confusion, no memory loss Exam - Vital Signs Vital signs: Vital Signs Temp Pulse Resp BP Pulse Ox 97.5 F L 79 20 168/98 98 09/22/18 13:50 09/22/18 13:50 09/22/18 13:50 09/22/18 13:50 09/22/18 13:50 - General Appearance General appearance: well-developed, well-nourished, appears stated age, other (no edema) EENT: ATNC, PERRL, hearing intact, vision intact Neck: Present: neck supple, trachea midline Respiratory: Clear to Ascultation Heart: regular, S1S2, no murmurs Gastrointestinal: Present: normoactive bowel sounds, obese. Absent: tenderness, distended Integumentary: ulcer (Right FA), erythema Neurologic: no focal deficit, no asterixis, alert and oriented x3 Musculoskeletal: Present: other (R UE is swollen, R FA AVF) Results - Lab Results 09/22/18 14:27 09/23/18 05:29 Most recent lab results Calcium 8.3 mg/dL (8.4-10.2) L 09/23/18 05:29 Assessment and Plan 1. ESRD: Patient is on maintenance hemodialysis three times a week. He missed HD yesterday due to infection and ulceration over the AVF. Scheduled to have hemodialysis catheter placed today. HD today. 2. FEN: Hyperkalemia, HD today with 1 K bath. Monitor lytes. 3. Anemia: Monitor and Epogen if needed. 4. Infected R FA AVF: Followed by Vascular. 5. HTN: Monitor BP.
--- NOTE | 2018-09-23 19:34 | Operative Report ---
Operative Report Operative Report: Date of Procedure: 09/23/2018 Pre-operative Diagnosis: Complications of Dialysis Access Post-operative Diagnosis: Same Procedure(s): 1. Ultrasound-Guided Access Right Brachiocephalic Arteriovenous Fistula 2. Right Arm Fistulogram with Central Venogram 3. Angioplasty and Stent of Right Innominate Vein with 12 x 40 Conquest Balloon and 12 x 80 Fluency Stent Graft 4. Angioplasty and Stent of Right Subclavian Vein with 12 x 40 Conquest Balloon and 12 x 60 Fluency Stent Graft 5. Monitored Moderate Sedation 6. Radiologic Supervision with Interpretation Surgeon: Jef Byrd M.D. 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 After intervention both veins were patent with less than 10% residual stenosis. Specimen: None Indication: The patient is a 53-year-old male with a history of end-stage renal disease who presented to the hospital with massive swelling of his right upper extremity and purulent drainage from ulceration overlying his right Kandice fistula. He had previous intervention for occlusion of his right subclavian innominate vein however he has obvious recurrence of the occlusion and is in need of intervention including a fistulogram with likely stent into improve the patency. He was given the risks, benefits, and alternative procedures and consented to the procedure. Description of Procedure: The patient was brought to the analytical laboratory technician and laid in supine position. After a timeout was performed his right arm was prepped and draped in normal sterile fashion. Ultrasound was used to identify the brachial cephalic fistula in the mid arm and confirm patency. Once patency was confirmed 2% lidocaine was used to anesthetize the overlying skin and soft tissue and a micropuncture technique was used to access the fistula, towards the venous outflow, using ultrasound guidance. A 7 Yemeni sheath was then placed by Seldinger technique. A fistulogram was performed revealing that the fistula was patent throughout the remainder of the venous outflow including the cephalic arch and the subclavian vein as well as the innominate vein were occluded. Multiple collateral veins around the occlusion filled superior vena cava. With the use of a vertebral catheter and 0.035 Advantage Wire I was able to traverse the occluded vessels and reentered the superior vena cava which was confirmed by venogram. I advanced the wire into the inferior vena cava and then exchanged the 7 Yemeni sheath for an 8 Yemeni 45 cm destination sheath. I then used an 8 x 60 [place] Balloon to predilate the occluded veins and then used a 12 x 40 Conquest balloon to perform angioplasty of the occluded vessels. This resulted in approximately 60% residual stenosis in both vessels. The decision at this point was made to place the stents. I removed the 8 Yemeni sheath and advanced the 12 x 80 Fluency Stent Graft, bareback into position and deployed it in the innominate vein taking caution to ensure that I did not cover the junction of the left innominate vein. I then removed the deployment catheter and advanced the 12 x 60 Fluency Stent Graft into position with approximately 3 cm of overlap and covering the entire area of the previously occluded subclavian vein. I removed the deployment catheter and reinserted the 8 Yemeni sheath. I then postdilated the stent grafts with the 12 x 40 Conquest Balloon. This resulted in less than 10% residual stenosis and both the innominate and subclavian veins. At this point I removed the balloon and wires and then used a 2-0 Ethilon in a slipknot fashion to close the entry site after removing the sheath. A sterile dressing was placed on the entry site and the patient was transported to the dialysis unit in stable condition.
[2018-09-23 21:58] LABS: Hepatitis B Surface Antigen Non-Reactive (Negative); Hepatitis C Virus Antibody Non-Reactive (NonReactive)
[2018-09-24] MEDS: ZOSYN/NS 2.25 GM/50ML 2.25 GM/50 ML BAG IV SCH ×2 (05:15→13:06)
[2018-09-24] MEDS: PERCOCET 5/325 PO PRN ×2 (05:20→14:46)
[2018-09-24 06:32] LABS: Basophils # (Auto) 0.1 K/mm3 (0.0-0.1); Basophils % (Auto) 1.2 % (0.0-1.8); Eosinophils # (Auto) 0.2 K/mm3 (0.0-0.4); Eosinophils % (Auto) 2.6 % (0.0-4.3); Hematocrit 34.3 % (35.5-45.6); Hemoglobin 11.5 gm/dl (11.8-15.2); Lymphocytes # (Auto) 0.4 K/mm3 (1.2-5.4); Lymphocytes % (Auto) 5.9 % (13.4-35.0); Mean Corpuscular HGB Conc 34 % (32-34); Mean Corpuscular Volume 103 fl (84-94); Monocytes # (Auto) 0.7 K/mm3 (0.0-0.8); Monocytes % (Auto) 9.1 % (0.0-7.3); Platelet Count 172 K/mm3 (140-440); Red Blood Count 3.32 M/mm3 (3.65-5.03); Red Cell Distribution Width 17.4 % (13.2-15.2)
[2018-09-24 06:56] LABS: Calcium 7.8 mg/dL (8.4-10.2)
[2018-09-24] MEDS ORDERED: XYLOCAINE MPF 2% ONE (07:12)
[2018-09-24] MEDS ORDERED: DIPRIVAN 10 MG/ML IV ONE (07:12)
[2018-09-24] MEDS ORDERED: SUBLIMAZE ONE (07:12)
--- NOTE | 2018-09-24 09:12 | Progress Note ---
Assessment and Plan 1. ESRD: Patient is on maintenance hemodialysis three times a week. He missed HD saturday due to infection and ulceration over the AVF. S/p 2 hrs of HD yesterday. Since his outpatient schedule is MWF will do HD today. 2. FEN: Hyperkalemia, improved. Monitor lytes. 3. Anemia: Monitor and Epogen if needed. 4. Infected R FA AVF: S/p angioplasty. Followed by [facility]. 5. HTN: Monitor BP. Subjective Date of service: 09/24/18 Interval history: Patient was seen and examined at the bedside. Objective - Vital Signs Vital signs: Vital Signs - 12hr 09/23/18 09/23/18 09/23/18 21:15 21:20 21:30 Temperature 97.2 F L Pulse Rate 85 96 H 89 Respiratory 18 Rate Blood Pressure 147/87 217/116 143/80 O2 Sat by Pulse Oximetry 09/23/18 09/23/18 09/23/18 21:45 22:00 22:20 Temperature 98.0 F Pulse Rate 94 H 92 H 81 Respiratory 18 Rate Blood Pressure 164/82 160/80 149/79 O2 Sat by Pulse Oximetry 09/23/18 09/23/18 09/24/18 23:00 23:05 00:21 Temperature 98.1 F Pulse Rate 81 81 Respiratory 20 18 Rate Blood Pressure 149/79 172/101 O2 Sat by Pulse 94 Oximetry 09/24/18 09/24/18 09/24/18 03:17 03:55 08:56 Temperature 98.2 F 97.4 F L Pulse Rate 83 83 90 Respiratory 18 18 Rate Blood Pressure 145/91 179/104 O2 Sat by Pulse 99 97 Oximetry - General Appearance General appearance: well-developed, well-nourished, appears stated age, other (no distress) EENT: ATNC, PERRL, mucous membranes moist, hearing intact, vision intact Neck: supple Respiratory: Present: Clear to Ascultation Cardiology: regular, S1S2 Gastrointestinal: normoactive bowel sounds, no tenderness, no distended Integumentary: ulcer (R FA over the old AVF) Neurologic: no focal deficit, no asterixis, alert and oriented x3 Musculoskeletal: other (R arm AVF, R UE swollen) Psychiatric: cooperative - Lab 09/24/18 06:20 09/24/18 06:20 Most recent lab results Calcium 7.8 mg/dL (8.4-10.2) L 09/24/18 06:20 Medications & Allergies - Medications Allergies/Adverse Reactions: Allergies No Known Allergies Allergy (Verified 08/06/13 00:06) Home Medications: Home Medications Medication Instructions Recorded Confirmed Last Taken Type Metoprolol [Lopressor TAB] 50 mg PO BID #60 tablet 07/06/17 09/22/18 09/22/18 Rx 50 amLODIPine [Norvasc] 10 mg PO DAILY #30 tablet 07/06/17 09/22/18 1 Day Ago Rx ~09/21/18 10 mg Aspirin [Adult Aspirin] 81 mg PO DAILY 08/08/18 09/22/18 09/22/18 History cloNIDine [Catapres] 0.3 mg PO BID 09/22/18 09/22/18 09/22/18 History .3 Active Medications: Generic Name Dose Route Start Last Admin Trade Name Freq PRN Reason Stop Dose Admin Acetaminophen 650 mg 09/22/18 21:34 09/23/18 16:04 Tylenol PO 650 mg Q4H PRN Administration Pain MILD(1-3)/Fever >100.5/MENDOZA Amlodipine Besylate 10 mg 09/23/18 10:00 09/23/18 10:00 Norvasc PO Not Given DAILY [facility] Clonidine HCl 0.1 mg 09/23/18 10:00 09/23/18 23:05 Catapres PO 0.1 mg BID [facility] Administration Clonidine HCl 0.2 mg 09/23/18 10:00 09/23/18 23:05 Catapres PO 0.2 mg BID [facility] Administration Hydralazine HCl 20 mg 09/23/18 08:21 09/23/18 17:13 Apresoline IV 20 mg Q4H PRN Administration Hypertension Piperacillin Sod/Tazobactam Sod 2.25 gm in 50 mls @ 100 mls/hr 09/22/18 20:30 09/24/18 05:15 Zosyn/Ns 2.25 Gm/50ml IV 100 mls/hr Q8H [facility] Administration Protocol Sodium Chloride 100 mls @ 999 mls/hr 09/23/18 19:18 Nacl 0.9% IV STEPH PRN Hypotension Metoprolol Tartrate 50 mg 09/23/18 10:00 09/23/18 23:05 Lopressor PO 50 mg BID [facility] Administration Ondansetron HCl 4 mg 09/22/18 21:34 Zofran IV Q8H PRN Nausea And Vomiting Oxycodone/Acetaminophen 1 tab 09/23/18 03:10 09/24/18 05:20 Percocet 5/325 PO 1 tab Q4H PRN Administration Pain, Moderate (4-6) Sodium Chloride 10 ml 09/22/18 22:00 09/23/18 23:05 Sodium Chloride Flush Syringe 10 Ml IV 10 ml BID [facility] Administration Sodium Chloride 10 ml 09/22/18 21:34 Sodium Chloride Flush Syringe 10 Ml IV PRN PRN LINE FLUSH
[2018-09-24] MEDS: LOPRESSOR PO SCH ×2 (09:56→21:05)
[2018-09-24] MEDS: NORVASC PO SCH (09:57)
[2018-09-24] MEDS: CATAPRES PO SCH ×4 (09:57→21:06)
[2018-09-24] MEDS: SODIUM CHLORIDE FLUSH SYRINGE 10 ML IV SCH ×2 (09:57→22:12)
[2018-09-24] MEDS ORDERED: NACL 0.9% 100 ML IV PRN (11:00)
--- NOTE | 2018-09-24 11:40 | Progress Note ---
Assessment and Plan Assessment and plan: Patient is a 53-year-old male with PMHx of hypertension, ESRD on HD, CHF, acid reflux, who presents to the ER with complaint of right forearm fistula infection. Pt states that the infection was noted on Saturday while he went for his HD treatment, he had a blood culture and was started on antibiotics. Patient states that the infection got worse today, it has a foul smell and purulent drainage, he was sent to the ER by his nephrology for further evaluation. Patient denies any fever, denies chills, denies nausea, denies pain in the affected area. Patient was evaluated and treated in the ER, Vascular surgery was consulted for revision of the right forearm infected fistula. --Infected AV graft; Empiric antibiotics, vascular consultation, vascular intervention today cultures, ID consult if needed --Hypertensive urgency; resume home antihypertensives When necessary hydralazine Closely monitor blood pressures --End-stage renal disease on hemodialysis; Nephrology and vascular consultation Hemodialysis per schedule --DVT prophylaxis; heparin ,renal dose --Obesity; BMI 31.8, advised weight reduction and medically stable --Hyperkalemia; calcium gluconate, Kayexalate, hemodialysis per schedule --Metabolic acidosis; secondary to end-stage renal disease, hemodialysis --Full CODE STATUS; Monitor closely and adjust management as needed Plan of care reviewed with the patient and his nurse Disposition; follow cultures, follow ID evaluation and recommendations Possible discharge and medically stable and cleared by the consultants History Interval history: Patient seen and examined medical records reviewed Admitted with infected AV graft, vascular evaluation the patient Setup new vascular access, received hemodialysis Vital signs noted Hospitalist Physical - Constitutional Vitals: Temp Pulse Resp BP Pulse Ox 97.4 F L 90 18 179/104 97 09/24/18 08:56 09/24/18 08:56 09/24/18 08:56 09/24/18 08:56 09/24/18 08:56 General appearance: Present: no acute distress, well-nourished, obese - EENT Eyes: Present: PERRL, EOM intact - Neck Neck: Present: supple, normal ROM - Respiratory Respiratory effort: normal Respiratory: bilateral: diminished, rales, negative: rhonchi, wheezing - Cardiovascular Rhythm: regular Heart Sounds: Present: S1 & S2 - Extremities Extremities: abnormal (right upper arm infected/cellulitis) Extremity abnormal: edema, other (infected wound) - Abdominal General gastrointestinal: soft, non-tender, non-distended, normal bowel sounds - Integumentary Integumentary: Present: clear, warm - Psychiatric Psychiatric: appropriate mood/affect, cooperative - Neurologic Neurologic: CNII-XII intact, moves all extremities Results - Labs CBC & Chem 7: 09/24/18 06:20 09/24/18 06:20 Labs: Laboratory Last Values WBC 7.6 K/mm3 (4.5-11.0) 09/24/18 06:20 RBC 3.32 M/mm3 (3.65-5.03) L 09/24/18 06:20 Hgb 11.5 gm/dl (11.8-15.2) L 09/24/18 06:20 Hct 34.3 % (35.5-45.6) L 09/24/18 06:20 MCV 103 fl (84-94) H 09/24/18 06:20 MCH 35 pg (28-32) H 09/24/18 06:20 MCHC 34 % (32-34) 09/24/18 06:20 RDW 17.4 % (13.2-15.2) H 09/24/18 06:20 Plt Count 172 K/mm3 (140-440) 09/24/18 06:20 Lymph % (Auto) 5.9 % (13.4-35.0) L 09/24/18 06:20 [place] % (Auto) 9.1 % (0.0-7.3) H 09/24/18 06:20 Eos % (Auto) 2.6 % (0.0-4.3) 09/24/18 06:20 Baso % (Auto) 1.2 % (0.0-1.8) 09/24/18 06:20 Lymph # 0.4 K/mm3 (1.2-5.4) L 09/24/18 06:20 [place] # 0.7 K/mm3 (0.0-0.8) 09/24/18 06:20 Eos # 0.2 K/mm3 (0.0-0.4) 09/24/18 06:20 Baso # 0.1 K/mm3 (0.0-0.1) 09/24/18 06:20 Seg Neutrophils % 81.2 % (40.0-70.0) H 09/24/18 06:20 Seg Neutrophils # 6.2 K/mm3 (1.8-7.7) 09/24/18 06:20 Sodium 141 mmol/L (137-145) 09/24/18 06:20 Potassium 4.1 mmol/L (3.6-5.0) D 09/24/18 06:20 Chloride 97.6 mmol/L (98-107) L 09/24/18 06:20 Carbon Dioxide 22 mmol/L (22-30) 09/24/18 06:20 26 mmol/L 09/24/18 06:20 BUN 69 mg/dL (9-20) H 09/24/18 06:20 19.2 mg/dL (0.8-1.5) H 09/24/18 06:20 Estimated GFR 3 ml/min 09/24/18 06:20 4 % 09/24/18 06:20 Glucose 97 mg/dL (75-100) 09/24/18 06:20 Lactic Acid 0.50 mmol/L (0.7-2.0) L 09/22/18 14:27 Calcium 7.8 mg/dL (8.4-10.2) L 09/24/18 06:20 Random Vancomycin 18.0 ug/mL (0-40.0) 09/24/18 06:20 Hepatitis A IgM Ab Non-reactive (NonReactive) 09/23/18 20:58 Hep Bs Antigen Non-reactive (Negative) 09/23/18 20:58 Hep B Core IgM Ab Non-reactive (NonReactive) 09/23/18 20:58 Non-reactive (NonReactive) 09/23/18 20:58 Active Medications - Current Medications Current Medications: Generic Name Dose Route Start Last Admin Trade Name Freq PRN Reason Stop Dose Admin Acetaminophen 650 mg 09/22/18 21:34 09/23/18 16:04 Tylenol PO 650 mg Q4H PRN Administration Pain MILD(1-3)/Fever >100.5/MENDOZA Amlodipine Besylate 10 mg 09/23/18 10:00 09/24/18 09:57 Norvasc PO 10 mg DAILY STEPAN Administration Clonidine HCl 0.1 mg 09/23/18 10:00 09/24/18 09:57 Catapres PO 0.1 mg BID STEPAN Administration Clonidine HCl 0.2 mg 09/23/18 10:00 09/24/18 09:57 Catapres PO 0.2 mg BID STEPAN Administration Hydralazine HCl 20 mg 09/23/18 08:21 09/23/18 17:13 Apresoline IV 20 mg Q4H PRN Administration Hypertension Piperacillin Sod/Tazobactam Sod 2.25 gm in 50 mls @ 100 mls/hr 09/22/18 20:30 09/24/18 05:15 Zosyn/Ns 2.25 Gm/50ml IV 100 mls/hr Q8H STEPAN Administration Protocol Sodium Chloride 100 mls @ 999 mls/hr 09/24/18 11:00 Nacl 0.9% IV STEPH PRN Hypotension Metoprolol Tartrate 50 mg 09/23/18 10:00 09/24/18 09:56 Lopressor PO 50 mg BID STEPAN Administration Ondansetron HCl 4 mg 09/22/18 21:34 Zofran IV Q8H PRN Nausea And Vomiting Oxycodone/Acetaminophen 1 tab 09/23/18 03:10 09/24/18 05:20 Percocet 5/325 PO 1 tab Q4H PRN Administration Pain, Moderate (4-6) Sodium Chloride 10 ml 09/22/18 22:00 09/24/18 09:57 Sodium Chloride Flush Syringe 10 Ml IV 10 ml BID STEPAN Administration Sodium Chloride 10 ml 09/22/18 21:34 Sodium Chloride Flush Syringe 10 Ml IV PRN PRN LINE FLUSH
--- NOTE | 2018-09-24 14:13 | Consultation ---
History of Present Illness - Reason for Consult Consult date: 09/24/18 AVF infection, cellulitis Requesting physician: YNES WORTHINGTON - History of Present Illness The patient is a 53-year-old male with hypertension, ESRD on hemodialysis, congestive heart failure presented to the emergency room on 09/22/2018 with right forearm infection and swelling. This developed about 4 days prior to admission. He went to on dialysis on Saturday where he had a blood culture done. T his came back as positive and he was started on IV antibiotics and recommended to the emergency room for admission. Vascular surgery was consulted due to concern for right forearm infection and AV fistula infection. On 09/23/2018, patient underwent a fistulogram with angioplasty and stent placement in the right innominate vein and right subclavian vein due to complete occlusion. Pt was empirically started on Zosyn and Vancomycin. Infectious Diseases was consulted for antibiotic recommendations. He has otherwise been afebrile here. His only complaint is that of right forearm pain. He reports initially there was some purulent drainage from that site, now resolved. Review of Systems: General: no fevers,chills or rigors HEENT: no new visual disturbance Respiratory: No cough, sputum, hemoptysis or shortness of breath Cardiovascular: No chest pain, syncope Gastrointestinal: nausea +, no vomiting or diarrhea Genitourinary: No dysuria or hematuria Musculoskeletal: No new or worsening neck pain or back pain Neurologic: No headaches, seizures Hematologic: No easy bruising or bleeding Endocrine: No night sweats or acute weight loss Skin: negative for rash, jaundice Psychiatric: No suicidal or homicidal ideation Past History Past Medical History: anemia, ESRD, GERD, hypertension, hyperlipidemia, renal failure, other (CHF) Past Surgical History: Other (left arm fistula) Social history: no significant social history Family history: no significant family history, hypertension Medications and Allergies Allergies Allergy/AdvReac Type Severity Reaction Status Date / Time No Known Allergies Allergy Verified 08/06/13 00:06 Home Medications Medication Instructions Recorded Confirmed Last Taken Type Metoprolol [Lopressor TAB] 50 mg PO BID #60 tablet 07/06/17 09/22/18 09/22/18 Rx 50 amLODIPine [Norvasc] 10 mg PO DAILY #30 tablet 07/06/17 09/22/18 1 Day Ago Rx ~09/21/18 10 mg Aspirin [Adult Aspirin] 81 mg PO DAILY 08/08/18 09/22/18 09/22/18 History cloNIDine [Catapres] 0.3 mg PO BID 09/22/18 09/22/18 09/22/18 History .3 Active Meds: Active Medications Acetaminophen (Tylenol) 650 mg PO Q4H PRN PRN Reason: Pain MILD(1-3)/Fever >100.5/MENDOZA Last Admin: 09/23/18 16:04 Dose: 650 mg Documented by: Amlodipine Besylate (Norvasc) 10 mg PO DAILY COUNT INCLUDES THE [facility] Last Admin: 09/24/18 09:57 Dose: 10 mg Documented by: Clonidine HCl (Catapres) 0.1 mg PO BID COUNT INCLUDES THE [facility] Last Admin: 09/24/18 09:57 Dose: 0.1 mg Documented by: Clonidine HCl (Catapres) 0.2 mg PO BID COUNT INCLUDES THE [facility] Last Admin: 09/24/18 09:57 Dose: 0.2 mg Documented by: Hydralazine HCl (Apresoline) 20 mg IV Q4H PRN PRN Reason: Hypertension Last Admin: 09/23/18 17:13 Dose: 20 mg Documented by: Piperacillin Sod/Tazobactam Sod (Zosyn/Ns 2.25 Gm/50ml) 2.25 gm in 50 mls @ 100 mls/hr IV Q8H COUNT INCLUDES THE [facility]; Protocol Last Admin: 09/24/18 13:06 Dose: 100 mls/hr Documented by: Sodium Chloride (Nacl 0.9%) 100 mls @ 999 mls/hr IV STEPH PRN PRN Reason: Hypotension Metoprolol Tartrate (Lopressor) 50 mg PO BID COUNT INCLUDES THE [facility] Last Admin: 09/24/18 09:56 Dose: 50 mg Documented by: Ondansetron HCl (Zofran) 4 mg IV Q8H PRN PRN Reason: Nausea And Vomiting Oxycodone/Acetaminophen (Percocet 5/325) 1 tab PO Q4H PRN PRN Reason: Pain, Moderate (4-6) Last Admin: 09/24/18 05:20 Dose: 1 tab Documented by: Sodium Chloride (Sodium Chloride Flush Syringe 10 Ml) 10 ml IV BID COUNT INCLUDES THE [facility] Last Admin: 09/24/18 09:57 Dose: 10 ml Documented by: Sodium Chloride (Sodium Chloride Flush Syringe 10 Ml) 10 ml IV PRN PRN PRN Reason: LINE FLUSH Physical Examination - Physical Exam Narrative exam: Physical Exam: Constitutional: Alert, cooperative. No acute distress Head, Ears, Nose: Normocephalic, atraumatic. External ears, nose normal Eyes: Conjunctivae/corneas clear. No icterus. No ptosis. Neck: Supple, no meningeal signs Oral: no thrush Cardiovascular: S1, S2 normal. Respiratory: Good air entry, clear to auscultation bilaterally GI: Soft, non-tender; bowel sounds normal. No peritoneal signs Musculoskeletal: Right arm AVF with thrill. Right forearm with lichenification of the skin, superficial ulceration and induration with tenderness. Skin: No rash or abscess Hem/Lymphatic: No palpable cervical or supraclavicular nodes. No lymphangitis Psych: Mood ok. Affect normal Neurological: Awake, alert, oriented. No gross abnormality - Constitutional Vitals: Vital Signs Temp Pulse Resp BP Pulse Ox 97.4 F L 90 18 179/104 97 09/24/18 08:56 09/24/18 08:56 09/24/18 08:56 09/24/18 08:56 09/24/18 08:56 Temperature -Last 24 Hours Temperature 97.4 F Temperature 98.2 F Temperature 98.1 F Temperature 98.0 F Temperature 97.2 F Results - Labs CBC & Chem 7: 09/24/18 06:20 09/24/18 06:20 Labs: Abnormal lab results 09/24/18 09/24/18 Range/Units 06:20 06:20 RBC 3.32 L (3.65-5.03) M/mm3 Hgb 11.5 L (11.8-15.2) gm/dl Hct 34.3 L (35.5-45.6) % MCV 103 H (84-94) fl MCH 35 H (28-32) pg RDW 17.4 H (13.2-15.2) % Lymph % (Auto) 5.9 L (13.4-35.0) % [place] % (Auto) 9.1 H (0.0-7.3) % Lymph # 0.4 L (1.2-5.4) K/mm3 Seg Neutrophils % 81.2 H (40.0-70.0) % Chloride 97.6 L (98-107) mmol/L BUN 69 H (9-20) mg/dL Creatinine 19.2 H (0.8-1.5) mg/dL Calcium 7.8 L (8.4-10.2) mg/dL Assessment and Plan Cultures: 09/22/2018 blood culture: No growth at 24 hours Called [facility] dialysis Center and spoke with the charge nurse. Blood culture done in dialysis clinic on 09/19/2018 grew group B streptococcus and MRSA. A/P: 53-year-old male with hypertension, ESRD on hemodialysis, congestive heart failure presented to the emergency room on 09/22/2018 with right forearm infection and swelling. Now with: 1) Right forearm cellulitis, infected AVF, abscess with MRSA and group B strep bacteremia: Check TTE. Given new stent/graft placement, will add PO Rifampin to prevent biofilm formation and bacteremia relapse. Continue IV Vancomycin. Plan for 6 weeks of therapy. 2) ESRD on HD: renally dose abx. 3) AVF dysfunction: s/p fistulogram on 09/23/2018 with stent/graft placement in right subclavian and innominate veins Recs: TTE ordered D/Jacques Zosyn Continue IV Vancomycin, post HD, target pre-dialysis level of 10-20 mcg/ml PO Rifampin 300 mg TID ordered Follow up blood cultures D/W Dr. Worthington. Ramón Segura MD, FACP [facility] C: [phone] O: [phone] F: [phone]
[2018-09-24] MEDS ORDERED: MORPHINE IV ONE (18:57)
[2018-09-24] MEDS: RIFADIN PO SCH (22:12)
[2018-09-25] MEDS: APRESOLINE IV PRN ×3 (00:06→17:15)
[2018-09-25] MEDS: PERCOCET 5/325 PO PRN (01:34)
[2018-09-25 06:12] LABS: Basophils # (Auto) 0.1 K/mm3 (0.0-0.1); Basophils % (Auto) 0.8 % (0.0-1.8); Eosinophils # (Auto) 0.2 K/mm3 (0.0-0.4); Eosinophils % (Auto) 2.5 % (0.0-4.3); Hemoglobin 12.6 gm/dl (11.8-15.2); Lymphocytes # (Auto) 0.5 K/mm3 (1.2-5.4); Lymphocytes % (Auto) 5.3 % (13.4-35.0); Mean Corpuscular HGB Conc 34 % (32-34); Mean Corpuscular Volume 104 fl (84-94); Monocytes # (Auto) 0.8 K/mm3 (0.0-0.8); Monocytes % (Auto) 8.7 % (0.0-7.3); Platelet Count 144 K/mm3 (140-440); Red Blood Count 3.57 M/mm3 (3.65-5.03); Red Cell Distribution Width 17.2 % (13.2-15.2)
[2018-09-25 06:29] LABS: Calcium 8.4 mg/dL (8.4-10.2)
--- NOTE | 2018-09-25 07:46 | Progress Note ---
Assessment and Plan Assessment and plan: Patient is a 53-year-old male with PMHx of hypertension, ESRD on HD, CHF, acid reflux, who presents to the ER with complaint of right forearm fistula infection. Pt states that the infection was noted on Saturday while he went for his HD treatment, he had a blood culture and was started on antibiotics. Patient states that the infection got worse today, it has a foul smell and purulent drainage, he was sent to the ER by his nephrology for further evaluation. Patient denies any fever, denies chills, denies nausea, denies pain in the affected area. Patient was evaluated and treated in the ER, Vascular surgery was consulted for revision of the right forearm infected fistula. R arm cellulitis Empiric antibiotics, vascular consultation, vascular intervention today cultures, ID consult if needed AVF dysfunction: s/p fistulogram on 09/23/2018 with stent/graft placement in right subclavian and innominate veins --Hypertensive urgency; resume home antihypertensives When necessary hydralazine Closely monitor blood pressures --End-stage renal disease on hemodialysis; Hemodialysis per schedule --DVT prophylaxis; heparin ,renal dose --Obesity; BMI 31.8, advised weight reduction and medically stable --Hyperkalemia; calcium gluconate, Kayexalate, hemodialysis per schedule, now resolved --Metabolic acidosis; secondary to end-stage renal disease, resolved hemodialysis --Full CODE STATUS; History Interval history: Patient continues to complain of pain in his right upper extremity extending into his shoulder and into his neck, he is very uncomfortable. Review of systems Constitutional: No fevers, no malaise, no joint pains CVS: No chest pain, no orthopnea, no dyspnea on exertion, no pedal edema GI: No abdominal pain, no diarrhea, no vomiting, no constipation Respiratory: no wheezing, no coughing Hospitalist Physical - Physical exam Narrative exam: General.: Appears well, no distress, nontoxic HEENT: Moist mucous membranes, extraocular muscles intact, no lymphadenopathy Neck: supple Cardiac: S1-S2 heard Lungs: clear to auscultation bilaterally Abdomen: soft , nontender, nondistended, bowel sounds positive Extremities: Right upper extremity swelling and pain, tender, ulceration over AV graft Skin: no rash or lesions Neurologic: no gross focal deficits Psych: calm, and cooperative - Constitutional Vitals: Temp Pulse Resp BP Pulse Ox 98.2 F 93 H 16 180/104 99 09/25/18 05:17 09/25/18 06:19 09/25/18 05:17 09/25/18 06:19 09/25/18 05:17 General appearance: Present: no acute distress, well-nourished, obese Results - Labs CBC & Chem 7: 09/25/18 04:54 09/25/18 04:54 Labs: Laboratory Last Values WBC 9.6 K/mm3 (4.5-11.0) 09/25/18 04:54 RBC 3.57 M/mm3 (3.65-5.03) L 09/25/18 04:54 Hgb 12.6 gm/dl (11.8-15.2) 09/25/18 04:54 Hct 37.0 % (35.5-45.6) 09/25/18 04:54 MCV 104 fl (84-94) H 09/25/18 04:54 MCH 35 pg (28-32) H 09/25/18 04:54 MCHC 34 % (32-34) 09/25/18 04:54 RDW 17.2 % (13.2-15.2) H 09/25/18 04:54 Plt Count 144 K/mm3 (140-440) 09/25/18 04:54 Lymph % (Auto) 5.3 % (13.4-35.0) L 09/25/18 04:54 [place] % (Auto) 8.7 % (0.0-7.3) H 09/25/18 04:54 Eos % (Auto) 2.5 % (0.0-4.3) 09/25/18 04:54 Baso % (Auto) 0.8 % (0.0-1.8) 09/25/18 04:54 Lymph # 0.5 K/mm3 (1.2-5.4) L 09/25/18 04:54 [place] # 0.8 K/mm3 (0.0-0.8) 09/25/18 04:54 Eos # 0.2 K/mm3 (0.0-0.4) 09/25/18 04:54 Baso # 0.1 K/mm3 (0.0-0.1) 09/25/18 04:54 Seg Neutrophils % 82.7 % (40.0-70.0) H 09/25/18 04:54 Seg Neutrophils # 8.0 K/mm3 (1.8-7.7) H 09/25/18 04:54 Sodium 141 mmol/L (137-145) 09/25/18 04:54 Potassium 4.6 mmol/L (3.6-5.0) 09/25/18 04:54 Chloride 96.8 mmol/L (98-107) L 09/25/18 04:54 Carbon Dioxide 25 mmol/L (22-30) 09/25/18 04:54 24 mmol/L 09/25/18 04:54 BUN 53 mg/dL (9-20) H 09/25/18 04:54 16.7 mg/dL (0.8-1.5) H 09/25/18 04:54 Estimated GFR 4 ml/min 09/25/18 04:54 3 % 09/25/18 04:54 Glucose 93 mg/dL (75-100) 09/25/18 04:54 Lactic Acid 0.50 mmol/L (0.7-2.0) L 09/22/18 14:27 Calcium 8.4 mg/dL (8.4-10.2) 09/25/18 04:54 Random Vancomycin 18.0 ug/mL (0-40.0) 09/24/18 06:20 Hepatitis A IgM Ab Non-reactive (NonReactive) 09/23/18 20:58 Hep Bs Antigen Non-reactive (Negative) 09/23/18 20:58 Hep B Core IgM Ab Non-reactive (NonReactive) 09/23/18 20:58 Non-reactive (NonReactive) 09/23/18 20:58 Active Medications - Current Medications Current Medications: Generic Name Dose Route Start Last Admin Trade Name Freq PRN Reason Stop Dose Admin Acetaminophen 650 mg 09/22/18 21:34 09/23/18 16:04 Tylenol PO 650 mg Q4H PRN Administration Pain MILD(1-3)/Fever >100.5/MENDOZA Amlodipine Besylate 10 mg 09/23/18 10:00 09/24/18 09:57 Norvasc PO 10 mg DAILY STEPAN Administration Clonidine HCl 0.1 mg 09/23/18 10:00 09/24/18 21:06 Catapres PO 0.1 mg BID STEPAN Administration Clonidine HCl 0.2 mg 09/23/18 10:00 09/24/18 21:05 Catapres PO 0.2 mg BID STEPAN Administration Hydralazine HCl 20 mg 09/23/18 08:21 09/25/18 06:19 Apresoline IV 20 mg Q4H PRN Administration Hypertension Sodium Chloride 100 mls @ 999 mls/hr 09/24/18 11:00 Nacl 0.9% IV STEPH PRN Hypotension Metoprolol Tartrate 50 mg 09/23/18 10:00 09/24/18 21:05 Lopressor PO 50 mg BID STEPAN Administration Ondansetron HCl 4 mg 09/22/18 21:34 Zofran IV Q8H PRN Nausea And Vomiting Oxycodone/Acetaminophen 1 tab 09/23/18 03:10 09/25/18 01:34 Percocet 5/325 PO 1 tab Q4H PRN Administration Pain, Moderate (4-6) Pantoprazole Sodium 40 mg 09/25/18 10:00 Protonix PO QDAY STEPAN Rifampin 300 mg 09/24/18 20:00 09/24/18 22:12 Rifadin PO 300 mg TID STEPAN Administration Sodium Chloride 10 ml 09/22/18 22:00 09/24/18 22:12 Sodium Chloride Flush Syringe 10 Ml IV 10 ml BID STEPAN Administration Sodium Chloride 10 ml 09/22/18 21:34 Sodium Chloride Flush Syringe 10 Ml IV PRN PRN LINE FLUSH
[2018-09-25] MEDS ORDERED: PERCOCET 5/325 PO PRN (08:45)
--- NOTE | 2018-09-25 09:32 | Progress Note ---
Assessment and Plan Cultures: 09/22/2018 blood culture: No growth at 24 hours Called [facility] dialysis Center and spoke with the charge nurse. Blood culture done in dialysis clinic on 09/19/2018 grew group B streptococcus and MRSA. A/P: 53-year-old male with hypertension, ESRD on hemodialysis, congestive heart failure presented to the emergency room on 09/22/2018 with right forearm infection and swelling. Now with: 1) Right forearm cellulitis, infected AVF, abscess with MRSA and group B strep bacteremia: Check TTE. Given new stent/graft placement, will add PO Rifampin to prevent biofilm formation and bacteremia relapse. Continue IV Vancomycin. Plan for 6 weeks of therapy. 2) ESRD on HD: renally dose abx. 3) AVF dysfunction: s/p fistulogram on 09/23/2018 with stent/graft placement in right subclavian and innominate veins Recs: follow-up TTE Continue IV Vancomycin, post HD, target pre-dialysis level of 10-20 mcg/ml Anticipate discharge on Vancomycin post HD for 6 weeks ending 11-03-18 (dose to be determined by pharmacy) Contiue PO Rifampin 300 mg TID, D2 (Rifampin will continue for 6 weeks ending 11-05-18) Follow up blood cultures [facility] M: [phone] O:[phone] Subjective Date of service: 09/25/18 Interval history: Patient seen and examined. Reports increased right arm pain and tenderness. No fevers. Objective - Exam Narrative Exam: Constitutional: Alert, cooperative. Acute distress reported Head, Ears, Nose: Normocephalic, atraumatic. External ears, nose normal Eyes: Conjunctivae/corneas clear. No icterus. No ptosis. Neck: Supple, no meningeal signs Oral: no thrush Cardiovascular: S1, S2 normal. Respiratory: Good air entry, clear to auscultation bilaterally GI: Soft, non-tender; bowel sounds normal. No peritoneal signs Musculoskeletal: Right arm AVF with thrill. Right forearm with lichenification of the skin, superficial ulceration and induration with tenderness. + dressing C/D/I Skin: No rash or abscess Hem/Lymphatic: No palpable cervical or supraclavicular nodes. No lymphangitis Psych: Mood ok. Affect normal Neurological: Awake, alert, oriented. No gross abnormality - Constitutional Vitals: Vital Signs Temp Pulse Resp BP Pulse Ox 98.2 F 93 H 16 180/104 99 09/25/18 05:17 09/25/18 06:19 09/25/18 05:17 09/25/18 06:19 09/25/18 05:17 Temperature -Last 24 Hours Temperature 98.2 F Temperature 98.3 F Temperature 98.2 F Temperature 98.2 F Temperature 98.0 F Temperature 97.4 F - Labs CBC & Chem 7: 09/25/18 04:54 09/25/18 04:54 Labs: Abnormal lab results 09/25/18 09/25/18 Range/Units 04:54 04:54 RBC 3.57 L (3.65-5.03) M/mm3 MCV 104 H (84-94) fl MCH 35 H (28-32) pg RDW 17.2 H (13.2-15.2) % Lymph % (Auto) 5.3 L (13.4-35.0) % [place] % (Auto) 8.7 H (0.0-7.3) % Lymph # 0.5 L (1.2-5.4) K/mm3 Seg Neutrophils % 82.7 H (40.0-70.0) % Seg Neutrophils # 8.0 H (1.8-7.7) K/mm3 Chloride 96.8 L (98-107) mmol/L BUN 53 H (9-20) mg/dL Creatinine 16.7 H (0.8-1.5) mg/dL
[2018-09-25] MEDS: DILAUDID IV PRN ×2 (09:47→17:55)
[2018-09-25] MEDS: CATAPRES PO SCH ×2 (10:18→10:19)
--- NOTE | 2018-09-25 10:18 | Progress Note ---
Assessment and Plan 1. ESRD: Patient is on maintenance hemodialysis three times a week. He missed HD saturday due to infection and ulceration over the AVF. S/p HD yesterday. 2. FEN: Hyperkalemia, improved. Monitor lytes. 3. Anemia: Monitor and Epogen if needed. 4. Infected R FA AVF: S/p angioplasty. Followed by Vascular. 5. HTN: Monitor BP. Subjective Date of service: 09/25/18 Interval history: Patient was seen and examined at the bedside. No new complaint. Objective - Vital Signs Vital signs: Vital Signs - 12hr 09/24/18 09/25/18 09/25/18 22:56 00:06 01:34 Temperature 98.3 F Pulse Rate 87 87 Respiratory 16 18 Rate Blood Pressure 188/114 188/114 O2 Sat by Pulse 95 Oximetry 09/25/18 09/25/18 05:17 06:19 Temperature 98.2 F Pulse Rate 97 H 93 H Respiratory 16 Rate Blood Pressure 180/104 180/104 O2 Sat by Pulse 99 Oximetry - General Appearance General appearance: well-developed, well-nourished, appears stated age, obese, other (no distress) EENT: ATNC, PERRL, hearing intact, vision intact Neck: supple Respiratory: Present: Clear to Ascultation Cardiology: regular, S1S2, no murmurs Gastrointestinal: normoactive bowel sounds, no tenderness, no distended, obese Integumentary: ulcer (R FA) Neurologic: no focal deficit, no asterixis, alert and oriented x3 Musculoskeletal: other ( UE edema noted, L arm AVF) - Lab 09/25/18 04:54 09/25/18 04:54 Most recent lab results Calcium 8.4 mg/dL (8.4-10.2) 09/25/18 04:54 Medications & Allergies - Medications Allergies/Adverse Reactions: Allergies No Known Allergies Allergy (Verified 08/06/13 00:06) Home Medications: Home Medications Medication Instructions Recorded Confirmed Last Taken Type Metoprolol [Lopressor TAB] 50 mg PO BID #60 tablet 07/06/17 09/22/18 09/22/18 Rx 50 amLODIPine [Norvasc] 10 mg PO DAILY #30 tablet 07/06/17 09/22/18 1 Day Ago Rx ~09/21/18 10 mg Aspirin [Adult Aspirin] 81 mg PO DAILY 08/08/18 09/22/18 09/22/18 History cloNIDine [Catapres] 0.3 mg PO BID 09/22/18 09/22/18 09/22/18 History .3 Active Medications: Generic Name Dose Route Start Last Admin Trade Name Freq PRN Reason Stop Dose Admin Acetaminophen 650 mg 09/22/18 21:34 09/23/18 16:04 Tylenol PO 650 mg Q4H PRN Administration Pain MILD(1-3)/Fever >100.5/MENDOZA Amlodipine Besylate 10 mg 09/23/18 10:00 09/24/18 09:57 Norvasc PO 10 mg DAILY STEPAN Administration Clonidine HCl 0.1 mg 09/23/18 10:00 09/24/18 21:06 Catapres PO 0.1 mg BID STEPAN Administration Clonidine HCl 0.2 mg 09/23/18 10:00 09/24/18 21:05 Catapres PO 0.2 mg BID STEPAN Administration Hydralazine HCl 20 mg 09/23/18 08:21 09/25/18 06:19 Apresoline IV 20 mg Q4H PRN Administration Hypertension Hydromorphone HCl 0.5 mg 09/25/18 08:43 09/25/18 09:47 Dilaudid IV 09/25/18 20:00 0.5 mg Q3H PRN Administration Pain , Severe (7-10) Sodium Chloride 100 mls @ 999 mls/hr 09/24/18 11:00 Nacl 0.9% IV STEPH PRN Hypotension Metoprolol Tartrate 50 mg 09/23/18 10:00 09/24/18 21:05 Lopressor PO 50 mg BID STEPAN Administration Ondansetron HCl 4 mg 09/22/18 21:34 Zofran IV Q8H PRN Nausea And Vomiting Oxycodone/Acetaminophen 2 tab 09/25/18 08:45 Percocet 5/325 PO Q4H PRN Pain, Moderate (4-6) Pantoprazole Sodium 40 mg 09/25/18 10:00 Protonix PO QDAY STEPAN Rifampin 300 mg 09/24/18 20:00 09/24/18 22:12 Rifadin PO 300 mg TID STEPAN Administration Sodium Chloride 10 ml 09/22/18 22:00 09/24/18 22:12 Sodium Chloride Flush Syringe 10 Ml IV 10 ml BID STEPAN Administration Sodium Chloride 10 ml 09/22/18 21:34 Sodium Chloride Flush Syringe 10 Ml IV PRN PRN LINE FLUSH
[2018-09-25] MEDS: PROTONIX PO SCH (10:19)
[2018-09-25] MEDS: SODIUM CHLORIDE FLUSH SYRINGE 10 ML IV SCH (10:19)
[2018-09-25] MEDS: NORVASC PO SCH (10:19)
[2018-09-25] MEDS: LOPRESSOR PO SCH (10:19)
[2018-09-25] MEDS: RIFADIN PO SCH ×2 (10:24→14:32)
[2018-09-25] MEDS ORDERED: DILAUDID IV STA (12:23)
--- NOTE | 2018-09-25 14:21 | Anesthesia Day of Surgery ---
Anesthesia Day of Surgery - Day of Surgery Patient Examined: Yes Patient H&P Reviewed: Yes Patient is NPO: Yes Beta Blockers: Yes
--- NOTE | 2018-09-25 14:22 | Anesthesia Consultation ---
Anesthesia Consult and Med Hx Date of service: 09/25/18 - Airway Anesthetic Teeth Evaluation: Good ROM Head & Neck: Adequate Mental/Hyoid Distance: Adequate Mallampati Class: Class III Intubation Access Assessment: Possibly Difficult - Pulmonary Exam CTA: Yes - Cardiac Exam Cardiac Exam: No Murmur - Pre-Operative Health Status ASA Pre-Surgery Classification: ASA4 Proposed Anesthetic Plan: General - Pulmonary Hx Asthma: No COPD: No Hx Pneumonia: No Hx Sleep Apnea: Yes - Cardiovascular System Hx Hypertension: Yes - Central Nervous System Hx Psychiatric Problems: No - Endocrine Hx Renal Disease: Yes (dialysis MWF) Hx End Stage Renal Disease: Yes - Other Systems Hx Cancer: No Hx Obesity: Yes
[2018-09-25] MEDS ORDERED: ZOFRAN ONE (14:30)
[2018-09-25] MEDS ORDERED: AMIDATE IV ONE ×2 (14:30→15:01)
[2018-09-25] MEDS ORDERED: SUBLIMAZE ONE (14:30)
[2018-09-25] MEDS ORDERED: DECADRON ONE (14:30)
[2018-09-25] MEDS ORDERED: DIPRIVAN 10 MG/ML IV ONE (14:31)
[2018-09-25] MEDS ORDERED: DILAUDID IV PRN (18:38)
[2018-09-25] MEDS ORDERED: XYLOCAINE 1%/ EPI 1:100,000 INFILTRATI ONE (19:52)
[2018-09-25] MEDS ORDERED: MARCAINE 0.5% INFILTRATI ONE ×2 (19:52→21:10)
[2018-09-25] MEDS ORDERED: HEPARIN 10,000 UNITS/10 ML ONE (19:52)
[2018-09-25] MEDS ORDERED: NACL 0.9% 500 ML 500 ML ONE (19:53)
[2018-09-25] MEDS ORDERED: NEO SYNEPHRINE/NS Syringe(OR USE) IV ONE ×2 (21:00→21:17)
[2018-09-25] MEDS ORDERED: HEPARIN 10,000 UNITS/10 ML IV ONE (21:10)
[2018-09-25] MEDS ORDERED: NACL 0.9% 500 ML IRRIGATION ONE (21:10)
[2018-09-25] MEDS ORDERED: NEO-SYNEPHRINE NS ONE (21:34)
[2018-09-25] MEDS ORDERED: SUBLIMAZE IV PRN (23:50)
[2018-09-25] MEDS: NORMODYNE IV PRN (23:55)
[2018-09-26] MEDS: NORMODYNE IV PRN (00:09)
--- NOTE | 2018-09-26 00:09 | Operative Report ---
Operative Report Operative Report: Date of Procedure: 09/25/2018 Pre-operative Diagnosis: Complications of Dialysis Access Post-operative Diagnosis: Same Procedure(s): 1. Ligation with Excision of Right Arm Kandice Arteriovenous Fistula And Overlying Ulcerated Skin 2. Creation of Right Brachiocephalic Arteriovenous Fistula Surgeon: Jef Byrd M.D. Key Bed Installer: None Anesthesia: Gen. Endotracheal Anesthesia EBL: 500 mL Counts: Correct Complications: There Condition: Stable Findings: Successful creation of right arm brachiocephalic arteriovenous fistula with palpable thrill at the completion of the case. Specimen: Right arm AV fistula and overlying skin sent to pathology Indication: The patient is a 53-year-old male with a history of end-stage renal disease who was receiving dialysis through a right Kandice arterial venous fistula. He developed ulcerations over the fistula secondary to severe swelling caused by c entral venous occlusion. The central occlusion had been previously treated but recurred shortly after treatment. It was felt that the best plan of action was to ligate and excise the fistula along with the overlying ulcerated skin and create a brachiocephalic fistula as the fistula be ready for use immediately since it had been arterialized for more than a year. The patient expressed understanding the plan and agree. Description of Procedure: The patient was brought to the operating room and laid in supine position. After general endotracheal anesthesia was achieved a longitudinal incision was made over the arterial outflow of the fistula and carried down to the fistula using sharp dissection. There was a significant amount of thickened fibrinous tissue overlying the fistula however I was able to dissect out the fistula itself and dissected out circumferentially and controlled with a vessel loop. I then made a longitudinal incision over the venous outflow of the fistula in the proximal forearm and dissected down to the fistula using sharp dissection. Again this portion of the fistula had a significant fibrinous tissue overlying however I dissected down to the actual fistula and controlled with vessel loop. I ligated each end of the fistula using 0 silks and then made an elliptical incision that extended from his longitudinal incision around the fistula, ensuring that I included the ulcerated skin and carried it down to the fistula. I transected both the arterial and venous portion of the fistula and then excised the fistula along with the skin island that included the ulcerated skin. Once the fistula have been excised I used to combination of cautery, quick clot, and Lan to achieve hemostasis within the wound. I then created skin flaps on the lateral edges and ensure that I will be able to close the incision without tension. I then placed a quick clot in the incision to achieve further hemostasis and turned my attention to creation of the arteriovenous fistula. I made a transverse incision just below the antecubital crease. Dissection was carried down to the the cephalic vein using sharp dissection. The vein was dissected out both proximally and distally and suture ligated and divided distally. I then ran a 3 Heriberto proximally in the vein, to ensure patency of the vein. Then flushed the vein with heparinized saline and flow was controlled with a bulldog clamp. I then dissected out the brachial artery through this incision circumferentially both proximal and distal and controlled the artery with vessel loops. I then placed the vessel loops on tension controlling the flow through the artery and created an arteriotomy using an 11 blade and Reaves scissors. I created an end to side anastomosis between the cephalic vein and brachial artery using a 6-0 Prolene in running fashion. Prior to completing the anastomosis I flushed the artery both proximally and distally and then advanced a 3 Heriberto proximally to break the spasm in the artery. I then completed the anastomosis and removed all vessel loops allowing flow into the fistula which had an excellent thrill. Hemostasis within the wound was achieved with a combination of cautery, quick clot, and Surgicel. Once hemostasis was achieved both wounds were anesthetized with 0.5% Marcaine. Fistula creation wound was then closed in 2 layers using a 3-0 Vicryl in running fashion in the deep dermal layer and a 4-0 Monocryl in running fashion subcuticular and then dressed with Dermabond. The longitudinal incision of the fistula excision was closed in 2 layers using a 3-0 Vicryl running fashion the deep dermal layer and then closed with kali to reapproximate the skin. In addition to kali 2-0 Ethilon in vertical mattress fashion was used in several areas to reduce the tension on the incision. That wound was then dressed with Xeroform gauze, fluffs, and a 3 inch Rudy bandage. The patient tolerated the procedure well. All sponge, needle, and instrument counts were correct. The patient was taken to the recovery area in stable condition.
[2018-09-26] MEDS: RIFADIN PO SCH ×2 (01:25→10:19)
[2018-09-26] MEDS: CATAPRES PO SCH ×4 (01:25→12:10)
[2018-09-26] MEDS: LOPRESSOR PO SCH ×2 (01:26→10:13)
[2018-09-26] MEDS: DILAUDID IV PRN ×4 (01:27→15:05)
[2018-09-26] MEDS: SODIUM CHLORIDE FLUSH SYRINGE 10 ML IV SCH ×2 (01:28→10:14)
--- NOTE | 2018-09-26 06:48 | Post Anesthesia Evaluation ---
- Post Anesthesia Evaluation Patient Participated: Yes Airway Patent: Yes Stable Respiratory Function: Yes Nausea/Vomiting: No Temp > 96.8F: Yes Pain Manageable: Yes Adequeate Hydration: Yes Anesthesia Complications: No
--- NOTE | 2018-09-26 08:23 | Progress Note ---
Assessment and Plan 1. ESRD: Patient is on maintenance hemodialysis three times a week. HD today. 2. FEN: Hyperkalemia, improved. Monitor lytes. 3. Anemia: Monitor and Epogen if needed. 4. Infected R FA AVF: S/p angioplasty. Followed by ID and Vascular. 5. HTN: Monitor BP. Subjective Date of service: 09/26/18 Interval history: Patient was seen and examined at the bedside. No new complaint. Objective - Vital Signs Vital signs: Vital Signs - 12hr 09/25/18 09/25/18 09/25/18 23:40 23:45 23:50 Temperature 97.5 F L Pulse Rate 102 H 101 H 101 H Respiratory 16 13 9 L Rate Blood Pressure 183/91 173/108 179/112 O2 Sat by Pulse 97 99 100 Oximetry 09/25/18 09/26/18 09/26/18 23:55 00:00 00:09 Temperature Pulse Rate 95 H 94 H 94 H Respiratory 17 14 Rate Blood Pressure 151/90 169/95 177/102 O2 Sat by Pulse 100 97 Oximetry 09/26/18 09/26/18 09/26/18 00:15 00:30 00:45 Temperature 97.7 F Pulse Rate 93 H 97 H 99 H Respiratory 10 L 15 12 Rate Blood Pressure 163/98 170/100 167/98 O2 Sat by Pulse 95 95 97 Oximetry 09/26/18 09/26/18 09/26/18 01:25 01:26 01:27 Temperature Pulse Rate 101 H 101 H Respiratory 20 Rate Blood Pressure 169/101 169/101 O2 Sat by Pulse Oximetry 09/26/18 09/26/18 09/26/18 03:58 05:22 05:42 Temperature 98.3 F Pulse Rate 96 H Respiratory 22 18 20 Rate Blood Pressure 169/104 O2 Sat by Pulse 93 Oximetry 09/26/18 07:11 Temperature Pulse Rate Respiratory 16 Rate Blood Pressure O2 Sat by Pulse Oximetry - General Appearance General appearance: well-developed, well-nourished, appears stated age, other (no distress) EENT: ATNC, PERRL, mucous membranes moist, hearing intact, vision intact Neck: supple Respiratory: Present: Clear to Ascultation Cardiology: regular, S1S2, no murmurs Gastrointestinal: normoactive bowel sounds, no tenderness, no distended, obese Integumentary: ulcer (R forearm) Neurologic: no focal deficit, no asterixis, alert and oriented x3 Musculoskeletal: other (R arm AVF) - Lab 09/25/18 04:54 09/25/18 04:54 Most recent lab results Calcium 8.4 mg/dL (8.4-10.2) 09/25/18 04:54 Medications & Allergies - Medications Allergies/Adverse Reactions: Allergies No Known Allergies Allergy (Verified 08/06/13 00:06) Home Medications: Home Medications Medication Instructions Recorded Confirmed Last Taken Type Metoprolol [Lopressor TAB] 50 mg PO BID #60 tablet 07/06/17 09/22/18 09/22/18 Rx 50 amLODIPine [Norvasc] 10 mg PO DAILY #30 tablet 07/06/17 09/22/18 1 Day Ago Rx ~09/21/18 10 mg Aspirin [Adult Aspirin] 81 mg PO DAILY 08/08/18 09/22/18 09/22/18 History cloNIDine [Catapres] 0.3 mg PO BID 09/22/18 09/22/18 09/22/18 History .3 oxyCODONE /ACETAMINOPHEN [Percocet 2 tab PO Q4H PRN #30 tablet 09/26/18 Unknown Rx 5/325 mg] Active Medications: Generic Name Dose Route Start Last Admin Trade Name Wilberq PRN Reason Stop Dose Admin Acetaminophen 650 mg 09/22/18 21:34 09/23/18 16:04 Tylenol PO 650 mg Q4H PRN Administration Pain MILD(1-3)/Fever >100.5/MENDOZA Amlodipine Besylate 10 mg 09/23/18 10:00 09/25/18 10:19 Norvasc PO 10 mg DAILY STEPAN Administration Clonidine HCl 0.1 mg 09/23/18 10:00 09/26/18 01:26 Catapres PO 0.1 mg BID STEPAN Administration Clonidine HCl 0.2 mg 09/23/18 10:00 09/26/18 01:25 Catapres PO 0.2 mg BID STEPAN Administration Hydralazine HCl 20 mg 09/23/18 08:21 09/25/18 17:15 Apresoline IV 20 mg Q4H PRN Administration Hypertension Hydromorphone HCl 1 mg 09/26/18 00:16 09/26/18 08:07 Dilaudid IV 09/28/18 18:37 1 mg Q2H PRN Administration Pain , Severe (7-10) Sodium Chloride 100 mls @ 999 mls/hr 09/24/18 11:00 Nacl 0.9% IV STEPH PRN Hypotension Labetalol HCl 10 mg 09/25/18 23:49 09/26/18 00:09 Normodyne IV 10 mg Q10MIN PRN Administration Hypertension Metoprolol Tartrate 50 mg 09/23/18 10:00 09/26/18 01:26 Lopressor PO 50 mg BID STEPAN Administration Ondansetron HCl 4 mg 09/22/18 21:34 Zofran IV Q8H PRN Nausea And Vomiting Oxycodone/Acetaminophen 2 tab 09/25/18 08:45 Percocet 5/325 PO Q4H PRN Pain, Moderate (4-6) Pantoprazole Sodium 40 mg 09/25/18 10:00 09/25/18 10:19 Protonix PO 40 mg QDAY STEPAN Administration Rifampin 300 mg 09/24/18 20:00 09/26/18 01:25 Rifadin PO 300 mg TID STEPAN Administration Sodium Chloride 10 ml 09/22/18 22:00 09/26/18 01:28 Sodium Chloride Flush Syringe 10 Ml IV 10 ml BID STEPAN Administration Sodium Chloride 10 ml 09/22/18 21:34 Sodium Chloride Flush Syringe 10 Ml IV PRN PRN LINE FLUSH
[2018-09-26] MEDS ORDERED: HEPARIN 10,000 UNITS/10 ML IV PRN (09:34)
[2018-09-26] MEDS ORDERED: NACL 0.9% 100 ML IV PRN (09:34)
--- NOTE | 2018-09-26 09:50 | Progress Note ---
Assessment and Plan Cultures: 09/22/2018 blood culture: No growth at 24 hours 09/24/2018 wound culture: in progress Called [facility] dialysis [facility] and spoke with the charge nurse. Blood culture done in dialysis clinic on 09/19/2018 grew group B streptococcus and MRSA. A/P: 53-year-old male with hypertension, ESRD on hemodialysis, congestive heart failure presented to the emergency room on 09/22/2018 with right forearm infection and swelling. Now with: 1) Right forearm cellulitis, infected AVF, abscess with MRSA and group B strep bacteremia: Check TTE. Given new stent/graft placement, will add PO Rifampin to prevent biofilm formation and bacteremia relapse. s/p excison of right arm fistula. Creation of right brachiocephhalic arteriovenous fistula, 09/25/18. No evidence of purulence or overt infection of the fistula. Continue IV Vancomycin. Plan for 6 weeks of therapy. 2) ESRD on HD: renally dose abx. 3) AVF dysfunction: s/p fistulogram on 09/23/2018 with stent/graft placement in right subclavian and innominate veins Recs: follow-up TTE - report pending Continue IV Vancomycin, post HD, target pre-dialysis level of 10-20 mcg/ml Anticipate discharge on Vancomycin 750mg IV post HD for 6 weeks ending 11-09-18 and Rifampin 300mg TID for 6 weeks ending 11-05-18 Order sent to case management Continue PO Rifampin 300 mg TID, D3 Follow up blood cultures Follow up ID clinic in [address] Segura will be configuration management administrator this weekend, , please call for questions. Ida Godoy NP [facility] M: [phone] O:[phone] Subjective Date of service: 09/26/18 Interval history: Patient seen and examined. No pain or generalized weakness reported. No fevers. Objective - Exam Narrative Exam: Constitutional: Alert, cooperative. No acute distress Head, Ears, Nose: Normocephalic, atraumatic. External ears, nose normal Eyes: Conjunctivae/corneas clear. No icterus. No ptosis. Neck: Supple, no meningeal signs Oral: no thrush Cardiovascular: S1, S2 normal. Respiratory: Good air entry, clear to auscultation bilaterally GI: Soft, non-tender; bowel sounds normal. No peritoneal signs Musculoskeletal: Right arm AVF with thrill. Right forearm with lichenification of the skin, superficial ulceration and induration with tenderness. + dressing C/D/I Skin: No rash or abscess Hem/Lymphatic: No palpable cervical or supraclavicular nodes. No lymphangitis Psych: Mood ok. Affect normal Neurological: Awake, alert, oriented. No gross abnormality - Constitutional Vitals: Vital Signs Temp Pulse Resp BP Pulse Ox 98.3 F 96 H 16 169/104 93 09/26/18 05:22 09/26/18 05:22 09/26/18 07:11 09/26/18 05:22 09/26/18 05:22 Temperature -Last 24 Hours Temperature 98.3 F Temperature 97.7 F Temperature 97.5 F Temperature 98.0 F Temperature 98.1 F - Labs CBC & Chem 7: 09/25/18 04:54 09/25/18 04:54
[2018-09-26] MEDS: NORVASC PO SCH (10:14)
[2018-09-26] MEDS: PROTONIX PO SCH (10:19)
--- NOTE | 2018-09-26 12:06 | Progress Note ---
Assessment and Plan Patient is doing well following his procedure. Given the size and accessibility of his brachial-cephalic fistula, as may be cannulated for dialysis as needed. EMLA cream may be life prior to cannulation secondary to tenderness. Subjective Date of service: 09/26/18 Principal diagnosis: nonfunctioning dialysis access Interval history: Patient is postop day 1 ligation and excision of Kandice fistula and creation of the cephalic fistula. Prior to that, the patient had undergone stenting secondary to central venous occlusion. The patient is doing well with greatly reduce swelling in his right upper arm and lower arm. The incision in his lower arm is clean dry and intact. He does have some tenderness on the inferior aspect of his brachiocephalic fistula however, palpable thrill was present throughout the fistula. Objective - Constitutional Vitals: Vital Signs - 12hr 09/26/18 09/26/18 09/26/18 00:09 00:15 00:30 Temperature Pulse Rate 94 H 93 H 97 H Respiratory 10 L 15 Rate Blood Pressure 177/102 163/98 170/100 O2 Sat by Pulse 95 95 Oximetry 09/26/18 09/26/18 09/26/18 00:45 01:25 01:26 Temperature 97.7 F Pulse Rate 99 H 101 H 101 H Respiratory 12 Rate Blood Pressure 167/98 169/101 169/101 O2 Sat by Pulse 97 Oximetry 09/26/18 09/26/18 09/26/18 01:27 03:58 05:22 Temperature 98.3 F Pulse Rate 96 H Respiratory 20 22 18 Rate Blood Pressure 169/104 O2 Sat by Pulse 93 Oximetry 09/26/18 09/26/18 09/26/18 05:42 07:11 10:13 Temperature Pulse Rate 100 H Respiratory 20 16 Rate Blood Pressure 158/82 O2 Sat by Pulse Oximetry 09/26/18 11:35 Temperature 97.5 F L Pulse Rate 99 H Respiratory 20 Rate Blood Pressure 152/92 O2 Sat by Pulse 92 Oximetry General appearance: Present: no acute distress - EENT Eyes: PERRL, EOM intact ENT: hearing intact - Neck Neck: supple, normal ROM - Respiratory Respiratory effort: normal - Breasts Breasts: deferred Extremities: no ischemia - Gastrointestinal General gastrointestinal: Present: deferred Rectal Exam: deferred - Genitourinary Male genitourinary: deferred - Psychiatric Psychiatric: appropriate mood/affect, cooperative - Labs CBC & Chem 7: 07/11/19 04:54 09/25/18 04:54 Medications & Allergies - Medications Allergies/Adverse Reactions: Allergies No Known Allergies Allergy (Verified 08/06/13 00:06) Home Medications: Home Medications Medication Instructions Recorded Confirmed Last Taken Type Metoprolol [Lopressor TAB] 50 mg PO BID #60 tablet 07/06/17 09/22/18 09/22/18 Rx 50 amLODIPine [Norvasc] 10 mg PO DAILY #30 tablet 07/06/17 09/22/18 1 Day Ago Rx ~09/21/18 10 mg Aspirin [Adult Aspirin] 81 mg PO DAILY 08/08/18 09/22/18 09/22/18 History cloNIDine [Catapres] 0.3 mg PO BID 09/22/18 09/22/18 09/22/18 History .3 Active Medications: Generic Name Dose Route Start Last Admin Trade Name Freq PRN Reason Stop Dose Admin Acetaminophen 650 mg 09/22/18 21:34 09/23/18 16:04 Tylenol PO 650 mg Q4H PRN Administration Pain MILD(1-3)/Fever >100.5/MENDOZA Amlodipine Besylate 10 mg 09/23/18 10:00 09/26/18 10:14 Norvasc PO 10 mg DAILY STEPAN Administration Clonidine HCl 0.1 mg 09/23/18 10:00 09/26/18 01:26 Catapres PO 0.1 mg BID STEPAN Administration Clonidine HCl 0.2 mg 09/23/18 10:00 09/26/18 01:25 Catapres PO 0.2 mg BID STEPAN Administration Heparin Sodium (Porcine) 3,000 unit 09/26/18 09:34 Heparin 10,000 Units/10 Ml IV STEPH PRN hemodialysis Hydralazine HCl 20 mg 09/23/18 08:21 09/25/18 17:15 Apresoline IV 20 mg Q4H PRN Administration Hypertension Hydromorphone HCl 1 mg 09/26/18 00:16 09/26/18 08:07 Dilaudid IV 09/28/18 18:37 1 mg Q2H PRN Administration Pain , Severe (7-10) Sodium Chloride 100 mls @ 999 mls/hr 09/26/18 09:34 Nacl 0.9% IV STEPH PRN Hypotension Labetalol HCl 10 mg 09/25/18 23:49 09/26/18 00:09 Normodyne IV 10 mg Q10MIN PRN Administration Hypertension Metoprolol Tartrate 50 mg 09/23/18 10:00 09/26/18 10:13 Lopressor PO 50 mg BID STEPAN Administration Ondansetron HCl 4 mg 09/22/18 21:34 Zofran IV Q8H PRN Nausea And Vomiting Oxycodone/Acetaminophen 2 tab 09/25/18 08:45 Percocet 5/325 PO Q4H PRN Pain, Moderate (4-6) Pantoprazole Sodium 40 mg 09/25/18 10:00 09/26/18 10:19 Protonix PO 40 mg QDAY STEPAN Administration Rifampin 300 mg 09/24/18 20:00 09/26/18 10:19 Rifadin PO 300 mg TID STEPAN Administration Sodium Chloride 10 ml 09/22/18 22:00 09/26/18 10:14 Sodium Chloride Flush Syringe 10 Ml IV 10 ml BID STEPAN Administration Sodium Chloride 10 ml 09/22/18 21:34 Sodium Chloride Flush Syringe 10 Ml IV PRN PRN LINE FLUSH
--- NOTE | 2018-09-26 14:01 | Event Note ---
Date: 09/26/18 Fax of blood culture report from [facility] received and reviewed: 09/19/2018 Blood culture is growing MRSE and not MRSA. There is also Group B Streptococcus growing. Recs: - continue IV Vancomycin 750 mg post HD x 6 weeks - PO Rifampin not needed, will discontinue - duration remains same: 6 weeks - see CHECK PROCESSING CLERK note for remaining recs Ramón Segura MD, FACP Infectious Disease Casting Machine Operator Helper
--- NOTE | 2018-09-26 15:30 | Progress Note ---
Assessment and Plan Assessment and plan: Patient is a 53-year-old male with PMHx of hypertension, ESRD on HD, CHF, acid reflux, who presents to the ER with complaint of right forearm fistula infection. Pt states that the infection was noted on Saturday while he went for his HD treatment, he had a blood culture and was started on antibiotics. Patient states that the infection got worse today, it has a foul smell and purulent drainage, he was sent to the ER by his nephrology for further evaluation. Patient denies any fever, denies chills, denies nausea, denies pain in the affected area. Patient was evaluated and treated in the ER, Vascular surgery was consulted for revision of the right forearm infected fistula. Right forearm cellulitis/abscess due to MRSE and group B strep ID input appreciated, continue antibiotics, follow-up echo, tentative dc tomorrow will receive 6 wks of abx with HD AVF dysfunction: s/p fistulogram on 09/23/2018 with stent/graft placement in right subclavian and innominate veins 09/25/18; ligation and excision of right arm AV fistula and overlying ulcerated skin, creation of right brachiocephalic AV fistula New AV graft may be cannulated per interventional radiology --Hypertensive urgency; resume home antihypertensives When necessary hydralazine Closely monitor blood pressures --End-stage renal disease on hemodialysis; Hemodialysis per schedule --DVT prophylaxis; heparin ,renal dose --Obesity; BMI 31.8, advised weight reduction and medically stable --Hyperkalemia; calcium gluconate, Kayexalate, hemodialysis per schedule, now resolved --Metabolic acidosis; secondary to end-stage renal disease, resolved hemodialysis --Full CODE STATUS; Procedures History Interval history: Right upper extremity and neck pain/swelling is much improved, he is much more comfortable today Review of systems Constitutional: No fevers, no malaise, no joint pains CVS: No chest pain, no orthopnea, no dyspnea on exertion, no pedal edema GI: No abdominal pain, no diarrhea, no vomiting, no constipation Respiratory: no wheezing, no coughing Hospitalist Physical - Physical exam Narrative exam: General.: Appears well, no distress, nontoxic HEENT: Moist mucous membranes, extraocular muscles intact, no lymphadenopathy Neck: supple Cardiac: S1-S2 heard Lungs: clear to auscultation bilaterally Abdomen: soft , nontender, nondistended, bowel sounds positive Extremities: Right upper extremity swelling and pain, tender, Skin: no rash or lesions Neurologic: no gross focal deficits Psych: calm, and cooperative - Constitutional Vitals: Temp Pulse Resp BP Pulse Ox 97.5 F L 92 H 20 152/92 92 09/26/18 11:35 09/26/18 12:10 09/26/18 11:35 09/26/18 12:10 09/26/18 11:35 General appearance: Present: no acute distress, well-nourished, obese Results - Labs CBC & Chem 7: 09/25/18 04:54 09/25/18 04:54 Labs: Laboratory Last Values WBC 9.6 K/mm3 (4.5-11.0) 09/25/18 04:54 RBC 3.57 M/mm3 (3.65-5.03) L 09/25/18 04:54 Hgb 12.6 gm/dl (11.8-15.2) 09/25/18 04:54 Hct 37.0 % (35.5-45.6) 09/25/18 04:54 MCV 104 fl (84-94) H 09/25/18 04:54 MCH 35 pg (28-32) H 09/25/18 04:54 MCHC 34 % (32-34) 09/25/18 04:54 RDW 17.2 % (13.2-15.2) H 09/25/18 04:54 Plt Count 144 K/mm3 (140-440) 09/25/18 04:54 Lymph % (Auto) 5.3 % (13.4-35.0) L 09/25/18 04:54 [place] % (Auto) 8.7 % (0.0-7.3) H 09/25/18 04:54 Eos % (Auto) 2.5 % (0.0-4.3) 09/25/18 04:54 Baso % (Auto) 0.8 % (0.0-1.8) 09/25/18 04:54 Lymph # 0.5 K/mm3 (1.2-5.4) L 09/25/18 04:54 [place] # 0.8 K/mm3 (0.0-0.8) 09/25/18 04:54 Eos # 0.2 K/mm3 (0.0-0.4) 09/25/18 04:54 Baso # 0.1 K/mm3 (0.0-0.1) 09/25/18 04:54 Seg Neutrophils % 82.7 % (40.0-70.0) H 09/25/18 04:54 Seg Neutrophils # 8.0 K/mm3 (1.8-7.7) H 09/25/18 04:54 Sodium 141 mmol/L (137-145) 09/25/18 04:54 Potassium 4.6 mmol/L (3.6-5.0) 09/25/18 04:54 Chloride 96.8 mmol/L (98-107) L 09/25/18 04:54 Carbon Dioxide 25 mmol/L (22-30) 09/25/18 04:54 24 mmol/L 09/25/18 04:54 BUN 53 mg/dL (9-20) H 09/25/18 04:54 16.7 mg/dL (0.8-1.5) H 09/25/18 04:54 Estimated GFR 4 ml/min 09/25/18 04:54 3 % 09/25/18 04:54 Glucose 93 mg/dL (75-100) 09/25/18 04:54 Lactic Acid 0.50 mmol/L (0.7-2.0) L 09/22/18 14:27 Calcium 8.4 mg/dL (8.4-10.2) 09/25/18 04:54 Random Vancomycin 14.7 ug/mL (0-40.0) 09/26/18 04:59 Hepatitis A IgM Ab Non-reactive (NonReactive) 09/23/18 20:58 Hep Bs Antigen Non-reactive (Negative) 09/23/18 20:58 Hep B Core IgM Ab Non-reactive (NonReactive) 09/23/18 20:58 Non-reactive (NonReactive) 09/23/18 20:58 Active Medications - Current Medications Current Medications: Generic Name Dose Route Start Last Admin Trade Name Freq PRN Reason Stop Dose Admin Acetaminophen 650 mg 09/22/18 21:34 09/23/18 16:04 Tylenol PO 650 mg Q4H PRN Administration Pain MILD(1-3)/Fever >100.5/MENDOZA Amlodipine Besylate 10 mg 09/23/18 10:00 09/26/18 10:14 Norvasc PO 10 mg DAILY STEPAN Administration Clonidine HCl 0.1 mg 09/23/18 10:00 09/26/18 12:10 Catapres PO 0.1 mg BID STEPAN Administration Clonidine HCl 0.2 mg 09/23/18 10:00 09/26/18 12:10 Catapres PO 0.2 mg BID STEPAN Administration Heparin Sodium (Porcine) 3,000 unit 09/26/18 09:34 Heparin 10,000 Units/10 Ml IV STEPH PRN hemodialysis Hydralazine HCl 20 mg 09/23/18 08:21 09/25/18 17:15 Apresoline IV 20 mg Q4H PRN Administration Hypertension Hydromorphone HCl 1 mg 09/26/18 00:16 09/26/18 15:05 Dilaudid IV 09/28/18 18:37 1 mg Q2H PRN Administration Pain , Severe (7-10) Sodium Chloride 100 mls @ 999 mls/hr 09/26/18 09:34 Nacl 0.9% IV STEPH PRN Hypotension Vancomycin HCl 1 gm in 250 mls @ 167.007 mls/hr 09/26/18 18:00 Vancomycin/Ns 1 Gm/250 Ml IV 09/26/18 19:29 ONCE ONE Labetalol HCl 10 mg 09/25/18 23:49 09/26/18 00:09 Normodyne IV 10 mg Q10MIN PRN Administration Hypertension Metoprolol Tartrate 50 mg 09/23/18 10:00 09/26/18 10:13 Lopressor PO 50 mg BID STEPAN Administration Ondansetron HCl 4 mg 09/22/18 21:34 Zofran IV Q8H PRN Nausea And Vomiting Oxycodone/Acetaminophen 2 tab 09/25/18 08:45 Percocet 5/325 PO Q4H PRN Pain, Moderate (4-6) Pantoprazole Sodium 40 mg 09/25/18 10:00 09/26/18 10:19 Protonix PO 40 mg QDAY STEPAN Administration Sodium Chloride 10 ml 09/22/18 22:00 09/26/18 10:14 Sodium Chloride Flush Syringe 10 Ml IV 10 ml BID STEPAN Administration Sodium Chloride 10 ml 09/22/18 21:34 Sodium Chloride Flush Syringe 10 Ml IV PRN PRN LINE FLUSH
--- NOTE | 2018-09-26 16:16 | Discharge Summary ---
Providers - Providers Date of Admission: 09/22/18 21:34 Attending physician: FELICITA CHIRINOS MD 09/22/18 19:07 Consult to Physician [CONS] Stat Comment: Dr. Yeung spoke with Dr. Caballero @ [phone] Consulting Provider: VALDEMAR CABALLERO Physician Instructions: Reason For Exam: HD access, infected AV access 09/22/18 19:09 Consult to Physician [CONS] Stat Comment: Dr. Yeung spoke with Dr. Welsh @ [phone] Consulting Provider: STEPHANIE WELSH Physician Instructions: Reason For Exam: AV fistula infection, needs dialysis 09/23/18 03:12 Consult to Wound/ET Nurse [CONS] Routine Reason For Exam: wound eval 09/24/18 11:33 Consult to Physician [CONS] Routine Comment: Consulting Provider: CHRIS CARDONA Physician Instructions: Reason For Exam: cellulitis/infected AV graft/ 09/26/18 13:48 Consult to Case Management [CONS] Routine Services Needed at Discharge: Other Notified:: cm Additional Physician Instructions: [facility] ([facility] M [phone] O [phone] F [phone] OUTPATIENT PARENTERAL ANTIBIOTIC THERAPY ORDERS Diagnoses: Right forearm cellulitis, infected AVF, abscess with MRSE and group B strep bacteremia Antimicrobial administration: Vancomycin 750mg IV post HD for 6 weeks ending 11-09-18. Lab monitoring: CBC, ALT, AST, vancomycin trough once a week preferly on Saturday morning. Please fax results to [phone] and call [phone] for critical lab results. Ida Godoy NP/Dr. Cardona Date: 09/26/18 [facility] Condition: Stable Hospital course: Patient is a 53-year-old male with PMHx of hypertension, ESRD on HD, CHF, acid reflux, who presents to the ER with complaint of right forearm fistula infection. Pt states that the infection was noted on Saturday while he went for his HD treatment, he had a blood culture and was started on antibiotics. Patient states that the infection got worse today, it has a foul smell and purulent drainage, he was sent to the ER by his nephrology for further evaluation. Patient denies any fever, denies chills, denies nausea, denies pain in the affected area. Patient was evaluated and treated in the ER, Vascular surgery was consulted for revision of the right forearm infected fistula. Right forearm cellulitis/abscess due to MRSE and group B strep ID input appreciated, continue antibiotics, echo showed no vet, dc w/ 6 wks of abx with HD per ID "- continue IV Vancomycin 750 mg post HD x 6 weeks" AVF dysfunction: s/p fistulogram on 09/23/2018 with stent/graft placement in right subclavian and innominate veins 09/25/18; ligation and excision of right arm AV fistula and overlying ulcerated skin, creation of right brachiocephalic AV fistula New AV graft may be cannulated per interventional radiology, cont HD with it --Hypertensive urgency; resume home antihypertensives meds optimized --End-stage renal disease on hemodialysis; Hemodialysis per schedule --DVT prophylaxis; heparin ,renal dose --Obesity; BMI 31.8, advised weight reduction and medically stable --Hyperkalemia; calcium gluconate, Kayexalate, hemodialysis per schedule, now resolved --Metabolic acidosis; secondary to end-stage renal disease, resolved hemodialysis --Full CODE STATUS; Procedures Disposition: DC-01 TO HOME OR SELFCARE Time spent for discharge: 33 mins Core Measure Documentation - Palliative Care Palliative Care/ Comfort Measures: Not Applicable - Core Measures Any of the following diagnoses?: none Exam - Physical Exam Narrative exam: General.: Appears well, no distress, nontoxic HEENT: Moist mucous membranes, extraocular muscles intact, no lymphadenopathy Neck: supple Cardiac: S1-S2 heard Lungs: clear to auscultation bilaterally Abdomen: soft , nontender, nondistended, bowel sounds positive Extremities: Right upper extremity swelling and pain, tender, Skin: no rash or lesions Neurologic: no gross focal deficits Psych: calm, and cooperative - Constitutional Vitals: Temp Pulse Resp BP Pulse Ox 97.5 F L 92 H 20 152/92 92 09/26/18 11:35 09/26/18 12:10 09/26/18 11:35 09/26/18 12:10 09/26/18 11:35 Plan Follow up with: RADHA COREAS MD [Primary Care Provider] - 7 Days Prescriptions: oxyCODONE /ACETAMINOPHEN [Percocet 5/325 mg] 2 tab PO Q4H PRN #30 tablet PRN Reason: Pain, Moderate (4-6)
[2018-09-26 17:56] VITALS: BP 147/89
[2018-09-26] MEDS ORDERED: VANCOMYCIN/NS 1 GM/250 ML 1 GM/250 ML BAG IV ONE (18:00)
== END 2018-09-26 19:16 | disposition home or self-care (01) | DRG 252 ==
LOC: ED 13:42 → 4A 21:34 → 3A 09-24 18:31
PROVIDERS: ADMIT Internal Medicine; ATTEND Internal Medicine
PROC: 05733DZ Dilation of Right Innominate Vein with Intraluminal Device, Percutaneous Approach (ICD-10-PCS; principal; 2018-09-23)
PROC: 05753DZ Dilation of Right Subclavian Vein with Intraluminal Device, Percutaneous Approach (ICD-10-PCS; 2018-09-23)
PROC: B51W1ZZ Fluoroscopy of Dialysis Shunt/Fistula using Low Osmolar Contrast (ICD-10-PCS; 2018-09-23)
PROC: B5181ZZ Fluoroscopy of Superior Vena Cava using Low Osmolar Contrast (ICD-10-PCS; 2018-09-23)
PROC: B5161ZZ Fluoroscopy of Right Subclavian Vein using Low Osmolar Contrast (ICD-10-PCS; 2018-09-23)
PROC: B5191ZZ Fluoroscopy of Inferior Vena Cava using Low Osmolar Contrast (ICD-10-PCS; 2018-09-23)
PROC: 5A1D70Z Performance of Urinary Filtration, Intermittent, Less than 6 Hours Per Day (ICD-10-PCS; 2018-09-23)
PROC: 5A1D70Z Performance of Urinary Filtration, Intermittent, Less than 6 Hours Per Day (ICD-10-PCS; 2018-09-24)
PROC: 03PY07Z Removal of Autologous Tissue Substitute from Upper Artery, Open Approach (ICD-10-PCS; 2018-09-25)
PROC: 05PY07Z Removal of Autologous Tissue Substitute from Upper Vein, Open Approach (ICD-10-PCS; 2018-09-25)
PROC: 03170ZF Bypass Right Brachial Artery to Lower Arm Vein, Open Approach (ICD-10-PCS; 2018-09-25)
PROC: 0HBDXZZ Excision of Right Lower Arm Skin, External Approach (ICD-10-PCS; 2018-09-25)
DX: T82.7XXA Infection and inflammatory reaction due to other cardiac and vascular devices, implants and grafts, initial encounter (principal); N18.6 End stage renal disease; E87.2 Acidosis; I13.2 Hypertensive heart and chronic kidney disease with heart failure and with stage 5 chronic kidney disease, or end stage renal disease; L03.113 Cellulitis of right upper limb; L02.413 Cutaneous abscess of right upper limb; T82.858A Stenosis of other vascular prosthetic devices, implants and grafts, initial encounter; I16.0 Hypertensive urgency; F41.9 Anxiety disorder, unspecified; K21.9 Gastro-esophageal reflux disease without esophagitis; B95.1 Streptococcus, group B, as the cause of diseases classified elsewhere; B95.62 Methicillin resistant Staphylococcus aureus infection as the cause of diseases classified elsewhere; I50.9 Heart failure, unspecified; G47.30 Sleep apnea, unspecified; E66.9 Obesity, unspecified; E87.5 Hyperkalemia; Y83.2 Surgical operation with anastomosis, bypass or graft as the cause of abnormal reaction of the patient, or of later complication, without mention of misadventure at the time of the procedure; Y92.098 Other place in other non-institutional residence as the place of occurrence of the external cause; Z99.2 Dependence on renal dialysis; Z79.82 Long term (current) use of aspirin; Z68.31 Body mass index [BMI] 31.0-31.9, adult; Z71.6 Tobacco abuse counseling
CPT/HCPCS: 36415; 36903; 76937; 80048; 80074; 80202; 82140; 85025; 87040; 87116; 88304; 93306; 96365; 96375; G0378; C1725; C1757; C1769; C1874; C1887; C1894; J0360; J0610; J1100; J1170; J1644; J1815; J2250; J2270; J2370; J2405; J2543; J2704; J3010; J3370; J7040; J7050; Q9967

== ENCOUNTER 2018-11-23 10:02 | Emergency (ER) | payer MEDICARE ==
--- NOTE | 2018-11-23 10:20 | Emergency Department Report ---
ED Shortness of Breath HPI - General Chief Complaint: Upper Respiratory Infection Stated Complaint: SOB Time Seen by Provider: 11/23/18 10:11 Source: patient Mode of arrival: Ambulatory Limitations: No Limitations - History of Present Illness Initial Comments: Patient is a 53-year-old male presents to emergency room with complaints of shortness of breath that began 2 days ago. It is worse with exertion and laying flat. He says he is having to sleep in a recliner. he has associated dry cough. He denies any chest pain, rhinorrhea, fever. He is a never smoker. Has a past medical history of CHF, HTN, ESRD. He states he does dialysis on Saturday and he last went on Saturday (11/21/18). Pt takes lisinopril, clonidine, metoprolol for his blood pressure and took them approximately 15 minutes [employer]. He states he does take Lasix daily but did not take it today. - Related Data Home Medications Medication Instructions Recorded Confirmed Last Taken Aspirin [Adult Aspirin] 81 mg PO DAILY 08/08/18 09/22/18 09/22/18 cloNIDine [Catapres] 0.3 mg PO BID 09/22/18 09/22/18 09/22/18 .3 Previous Rx's Medication Instructions Recorded Last Taken Type Metoprolol [Lopressor TAB] 50 mg PO BID #60 tablet 07/06/17 09/22/18 Rx 50 amLODIPine [Norvasc] 10 mg PO DAILY #30 tablet 07/06/17 1 Day Ago Rx ~09/21/18 10 mg oxyCODONE /ACETAMINOPHEN [Percocet 2 tab PO Q4H PRN #30 tablet 09/26/18 Unknown Rx 5/325 mg] Allergies Allergy/AdvReac Type Severity Reaction Status Date / Time No Known Allergies Allergy Verified 08/06/13 00:06 ED Review of Systems ROS: Stated complaint: SOB Other details as noted in HPI Comment: All other systems reviewed and negative ED Past Medical Hx - Past Medical History Previous Medical History?: Yes Hx Hypertension: Yes Hx Congestive Heart Failure: Yes Hx Diabetes: No Hx Renal Disease: Yes (dialysis MWF) Hx Asthma: No Hx COPD: No Additional medical history: arterial blockage 08/2018 - Surgical History Past Surgical History?: Yes Additional Surgical History: fistula placement- right forearm - Social History Smoking Status: Never Smoker Substance Use Type: None - Medications Home Medications: Home Medications Medication Instructions Recorded Confirmed Last Taken Type Metoprolol [Lopressor TAB] 50 mg PO BID #60 tablet 07/06/17 09/22/18 09/22/18 Rx 50 amLODIPine [Norvasc] 10 mg PO DAILY #30 tablet 07/06/17 09/22/18 1 Day Ago Rx ~09/21/18 10 mg Aspirin [Adult Aspirin] 81 mg PO DAILY 08/08/18 09/22/18 09/22/18 History cloNIDine [Catapres] 0.3 mg PO BID 09/22/18 09/22/18 09/22/18 History .3 oxyCODONE /ACETAMINOPHEN [Percocet 2 tab PO Q4H PRN #30 tablet 09/26/18 Unknown Rx 5/325 mg] ED Physical Exam - General Limitations: No Limitations General appearance: alert, in no apparent distress - Head Head exam: Present: atraumatic, normocephalic - Eye Eye exam: Present: normal appearance - ENT ENT exam: Present: mucous membranes moist - Respiratory Respiratory exam: Present: decreased breath sounds (right lung base). Absent: respiratory distress, wheezes, stridor, accessory muscle use, prolonged expiratory - Cardiovascular Cardiovascular Exam: Present: regular rate, normal rhythm, normal heart sounds. Absent: systolic murmur, diastolic murmur, rubs, gallop - Neurological Exam Neurological exam: Present: alert, oriented X3 - Psychiatric Psychiatric exam: Present: normal affect, normal mood - Skin Skin exam: Present: warm, dry, intact ED Course Vital Signs 11/23/18 11/23/18 11/23/18 10:08 10:14 12:10 Temperature 97.6 F Pulse Rate 72 68 Respiratory 18 17 18 Rate Blood Pressure 169/102 172/109 [Left] O2 Sat by Pulse 97 Oximetry ED Medical Decision Making - Lab Data Result diagrams: 11/23/18 10:31 11/23/18 10:31 - EKG Data EKG shows normal: sinus rhythm, axis, intervals, QRS complexes, ST-T waves Rate: normal - Radiology Data Radiology results: report reviewed CHEST 2 VIEWS, 11/23/2018 INDICATION: Shortness of breath COMPARISON: Chest radiograph, 07/05/2017 FINDINGS: Support devices: Dialysis catheter has been removed. There is been interval placement of vascular stent overlying the right upper chest. Heart: No focal airspace disease or significant pleural effusion is seen. Lungs/pleura: There is linear density at the right lung base favored to represent atelectasis. No pleural effusion or evidence of pneumothorax. Additional findings: No additional acute findings. IMPRESSION: 1. No evidence of acute cardiopulmonary process. Signer Name: Carly Grigsby MD Signed: 11/23/2018 10:32 AM Workstation Name: [id number] Transcribed By: EB Dictated By: Carly Grigsby MD Electronically Authenticated By: Carly Grigsby MD Signed Date/Time: 11/23/18 1032 - Medical Decision Making Patient is a 53-year-old male presents to emergency room with complaints of shortness of breath that began 2 days ago. It is worse with exertion and laying flat. He says he is having to sleep in a recliner. he has associated dry cough. He denies any chest pain, rhinorrhea, fever. He is a never smoker. Has a past medical history of CHF, HTN, ESRD. He states he does dialysis on Saturday and he last went on Saturday (11/21/18). Pt takes lisinopril, clonidine, metoprolol for his blood pressure and took them approximately 15 minutes [employer]. He states he does take Lasix daily but did not take it today. vitals with elevated blood pressure, pt just took his medications right prior to arrival. on exam: right lung base with decreased breath sounds. CXR: No evidence of acute cardiopulmonary process, there is linear density at the right lung base favored to represent atelectasis. No pleural effusion or evidence of pneumothorax. pt is very low risk for PE based on Wells Criteria. labs with elevated BNP, elevated potassium at 5.5, kidney function is at baseline, pt is due for dialysis tomorrow (11/24/18). discussed case with Dr. Yeung, who advised to give oral lasix and to have patient follow up with cardiology on an outpa tient basis, and pt may be discharged home. pt given 40 mg of lasix while in the ED and good diuresis output, pt does still make urine despite dialysis. discussed with pt to please continue taking your medications as your are prescribed by your primary care doctor. please go to dialysis tomorrow (11/24/18) as routinely scheduled. pt given cardiology referral. advised pt to follow up with a primary care doctor and it systems administrator in the next 2-3 days. return to the emergency room for any new or worsening symptoms. - Differential Diagnosis PNA, PTX, acute on chronic CHF, ESRD, PE, pleural effusion, atlectasis Critical care attestation.: If time is entered above; I have spent that time in minutes in the direct care of this critically ill patient, excluding procedure time. ED Disposition Clinical Impression: SOB (shortness of breath), Hyperkalemia, End stage renal disease on dialysis, Elevated brain natriuretic peptide (BNP) level Disposition: TO HOME OR SELFCARE Is pt being admited?: No Does the pt Need Aspirin: No Condition: Stable Instructions: Chronic Kidney Disease (ED), Dyspnea (ED) Additional Instructions: please continue taking your medications as your are prescribed by your primary care doctor. please go to dialysis tomorrow (11/23/18) as routinely scheduled. follow up with a primary care doctor and it systems administrator in the next 2-3 days. return to the emergency room for any new or worsening symptoms. Referrals: LOREN VILLAGOMEZ MD [Staff Physician] - 2-3 Days PRIMARY CAREMD [Primary Care Provider] - 2-3 Days Time of Disposition: 11:59 Print Language: WELSH
--- NOTE | 2018-11-23 10:37 | XRay Report ---
CHEST 2 VIEWS, 11/23/2018 INDICATION: Shortness of breath COMPARISON: Chest radiograph, 07/05/2017 FINDINGS: Support devices: Dialysis catheter has been removed. There is been interval placement of vascular ji nt overlying the right upper chest. Heart: No focal airspace disease or significant pleural effusion is seen. Lungs/pleura: There is linear density at the right lung base favored to represent atelectasis. No ple ural effusion or evidence of pneumothorax. Additional findings: No additional acute findings. IMPRESSION: 1. No evidence of acute cardiopulmonary process. Signer Name: Carly Grigsby MD Signed: 11/23/2018 10:32 AM Workstation Name: [id number]
[2018-11-23] MEDS ORDERED: LASIX IV ONE (10:45)
[2018-11-23] MEDS ORDERED: LASIX PO ONE (10:49)
[2018-11-23 10:50] LABS: Basophils # (Auto) 0.1 K/mm3 (0.0-0.1); Basophils % (Auto) 1.6 % (0.0-1.8); Eosinophils # (Auto) 0.6 K/mm3 (0.0-0.4); Eosinophils % (Auto) 10.1 % (0.0-4.3); Hematocrit 33.3 % (35.5-45.6); Hemoglobin 11.1 gm/dl (11.8-15.2); Lymphocytes # (Auto) 0.7 K/mm3 (1.2-5.4); Lymphocytes % (Auto) 10.5 % (13.4-35.0); Mean Corpuscular HGB Conc 33 % (32-34); Mean Corpuscular Volume 104 fl (84-94); Monocytes # (Auto) 0.5 K/mm3 (0.0-0.8); Platelet Count 181 K/mm3 (140-440); Red Blood Count 3.19 M/mm3 (3.65-5.03); Red Cell Distribution Width 17.1 % (13.2-15.2)
[2018-11-23 11:10] LABS: Alanine Aminotransferase 21 units/L (7-56); Albumin 3.5 g/dL (3.9-5); BUN/Creatinine Ratio 4; Blood Urea Nitrogen 82 mg/dL (9-20); Calcium 8.8 mg/dL (8.4-10.2); Hemolysis Index 1
[2018-11-23 12:11] VITALS: BP 172/109
== END 2018-11-23 12:11 | disposition home or self-care (01) ==
LOC: ED 10:02
DX: I13.2 Hypertensive heart and chronic kidney disease with heart failure and with stage 5 chronic kidney disease, or end stage renal disease (principal); R74.8 Abnormal levels of other serum enzymes; E87.5 Hyperkalemia; N18.6 End stage renal disease; I50.9 Heart failure, unspecified; Z99.2 Dependence on renal dialysis; Z98.890 Other specified postprocedural states; Z79.82 Long term (current) use of aspirin; Z79.899 Other long term (current) drug therapy
CPT/HCPCS: 36415; 71046; 80053; 83880; 85025; 93005; 93010; 99284

== ENCOUNTER 2020-12-13 06:03 | Day surgery (SDC) | payer MEDICARE ==
[~2020-12-13 06:03] MED LIST: HEPARIN 10,000 UNITS/10 ML VIAL IV ONE; MIDAZOLAM 2 MG/2 ML INJ IV NR; SODIUM CHLORIDE 0.9% 1000 ML 1,000 ML IV SCH; SODIUM CHLORIDE 0.9% 500 ML IVPB IRRIGATION ONE; SODIUM CHLORIDE 0.9% IRR 1,500 ML BOTTLE IR ONE; ceFAZolin/STERILE WATER 2 GM/20 ML SYRINGE IV NR
[2020-12-13] MEDS ORDERED: BACTERIOSTATIC SODIUM CHLORIDE 0.9% 30 ML VIAL INFILTRATI ONE (06:39)
[2020-12-13] MEDS ORDERED: propofoL 200 MG/20 ML VIAL IV ONE (07:12)
[2020-12-13] MEDS ORDERED: LIDOCAINE MPF (2%) 20 MG/1 ML VIAL 5 ML ONE (07:12)
[2020-12-13] MEDS ORDERED: MIDAZOLAM 5 MG/5 ML INJ MDV IV ONE (07:16)
[2020-12-13] MEDS ORDERED: fentaNYL 100 MCG/2 ML INJ ONE (07:16)
[2020-12-13 07:17] LABS: Hematocrit 31.9 % (35.5-45.6); Hemoglobin 11.1 gm/dl (11.8-15.2); Mean Corpuscular HGB Conc 35 % (32-34); Mean Corpuscular Volume 103 fl (84-94); Platelet Count 186 K/mm3 (140-440); Red Blood Count 3.11 M/mm3 (3.65-5.03); Red Cell Distribution Width 14.3 % (13.2-15.2)
[2020-12-13] MEDS ORDERED: LIDOCAINE 1%/EPINEPHRINE 1:100,000 VIAL (20 ML) INFILTRATI ONE ×2 (07:23→07:24)
[2020-12-13] MEDS ORDERED: SODIUM CHLORIDE 0.9% 250ML 0 ML ONE (07:23)
[2020-12-13] MEDS ORDERED: BUPIVACAINE/PF (0.5%) 5 MG/1 ML 30 ML VIAL INFILTRATI ONE ×2 (07:23→11:15)
[2020-12-13] MEDS ORDERED: SODIUM BICARBONATE 2 MEQ/2 ML SYRINGE ONE (07:23)
[2020-12-13] MEDS ORDERED: SODIUM CHLORIDE 0.9% 500 ML 500 ML ONE (07:23)
[2020-12-13] MEDS ORDERED: HEPARIN 10,000 UNITS/10 ML VIAL ONE (07:23)
[2020-12-13 07:29] LABS: Calcium 9.4 mg/dL (8.4-10.2)
[2020-12-13] MEDS ORDERED: ONDANSETRON 4 MG/2 ML INJ IV PRN (07:29)
[2020-12-13] MEDS ORDERED: fentaNYL 100 MCG/2 ML INJ IV PRN (07:29)
--- NOTE | 2020-12-13 07:32 | Anesthesia Day of Surgery ---
Anesthesia Day of Surgery - Day of Surgery Patient Examined: Yes Patient H&P Reviewed: Yes Patient is NPO: Yes Beta Blockers: Yes (metoprolol today AM)
--- NOTE | 2020-12-13 07:32 | Anesthesia Consultation ---
Anesthesia Consult and Med Hx Date of service: 12/13/20 - Airway Anesthetic Teeth Evaluation: Good ROM Head & Neck: Adequate (occasional left sided neck pain with extension) Mental/Hyoid Distance: Adequate Mallampati Class: Class III Intubation Access Assessment: Possibly Difficult - Pulmonary Exam CTA: Yes - Cardiac Exam Cardiac Exam: RRR - Pre-Operative Health Status ASA Pre-Surgery Classification: ASA4 Proposed Anesthetic Plan: General - Pulmonary Hx Smoking: No Hx Respiratory Symptoms: No Hx Sleep Apnea: Yes (no CPAP) - Cardiovascular System Hx Hypertension: Yes Hx Coronary Artery Disease: Yes Hx Heart Attack/AMI: No (Pt denies) Hx Percutaneous Transluminal Coronary Angioplasty (PTCA): Yes (2018) Hx Cardia Arrhythmia: Yes (3rd degree heart block) Hx Pacemaker: Yes Hx Heart Murmur: Yes - Central Nervous System CVA: No - Endocrine Hx End Stage Renal Disease: Yes (last HD 12/12/20) Hx Liver Disease: No Hx Insulin Dependent Diabetes: No Hx Non-Insulin Dependent Diabetes: No Hx Thyroid Disease: No - Hematic Hx Anemia: Yes - Additional Comments Anesthesia Medical History Comments: No hx anesthetic complications.
[2020-12-13] MEDS ORDERED: HEPARIN 5,000 UNIT/1 ML VIAL ONE (07:35)
[2020-12-13] MEDS ORDERED: rifAMPin 600 MG VIAL ONE (07:37)
[2020-12-13] MEDS ORDERED: SODIUM CHLORIDE P/F VIAL 10 ML 0 ML ONE (07:37)
[2020-12-13] MEDS ORDERED: LIDOCAINE (1%) 10 MG/1 ML VIAL 20 ML MDV ONE (07:51)
[2020-12-13] MEDS ORDERED: BUPIVACAINE/PF (0.5%) 5 MG/1 ML 10 ML VIAL INFILTRATI ONE (07:51)
[2020-12-13] MEDS ORDERED: HEPARIN 10,000 UNIT/1 ML VIAL ONE (09:18)
[2020-12-13] MEDS ORDERED: HEPARIN 10,000 UNITS/10 ML VIAL IV ONE ×2 (09:36)
[2020-12-13] MEDS ORDERED: SODIUM CHLORIDE 0.9% IRR 1,500 ML BOTTLE IR ONE (09:36)
[2020-12-13] MEDS ORDERED: SODIUM CHLORIDE 0.9% 500 ML IVPB IRRIGATION ONE (09:36)
[2020-12-13] MEDS ORDERED: SODIUM CHLORIDE P/F VIAL 10 ML 10 ML ONE (10:07)
[2020-12-13] MEDS ORDERED: SODIUM CHLORIDE 0.9% 250ML 250 ML ONE (10:08)
[2020-12-13] MEDS ORDERED: SODIUM CHLORIDE 0.9% 250 ML IVPB IV ONE (10:12)
[2020-12-13] MEDS ORDERED: rifAMPin 600 MG VIAL IV ONE (10:13)
[2020-12-13] MEDS ORDERED: SODIUM CHLORIDE 0.9% P/F 10 ML VIAL IV ONE (10:13)
[2020-12-13] MEDS ORDERED: PHENYLEPHRINE/NS 1,000 MCG/10 ML SYRINGE (OR USE) IV ONE (10:15)
[2020-12-13] MEDS ORDERED: ONDANSETRON 4 MG/2 ML INJ ONE (10:17)
[2020-12-13] MEDS ORDERED: ROCURONIUM 50 MG/5 ML INJ IV ONE (10:17)
[2020-12-13] MEDS ORDERED: NEOSTIGMINE 10MG/10 ML INJ MDV ONE (10:17)
[2020-12-13] MEDS ORDERED: GLYCOPYRROLATE 0.4 MG/2 ML INJ ONE (10:17)
[2020-12-13] MEDS ORDERED: HEPARIN 10,000 UNIT/1 ML VIAL IV ONE (12:51)
--- NOTE | 2020-12-13 13:11 | Operative Report ---
Operative Report Operative Report: Date of Procedure: 12/13/2020 Pre-operative Diagnosis: Complications of Dialysis Access Post-operative Diagnosis: Same Procedure(s): 1. Revision of Right Arm Arteriovenous Fistula with Excision of Pseudoaneurysms and Repair with Interposition 7 mm Bovine Artegraft 2. Ultrasound-Guided Access Right Common Femoral Vein 3. Placement of 44 cm Palindrome Permacath 4. Radiologic Supervision with Interpretation Surgeon: Jef Byrd M.D. Stadium Attendant: None Anesthesia: General Endotracheal Anesthesia EBL: 150 mL Counts: Correct Complications: None Condition: Stable Findings: The pseudoaneurysms were removed and the interposition graft was placed without tension. The wound was closed without tension and there was a palpable thrill in the access at the completion of the case. The permacath was placed with the distal tip at the cavoatrial junction. Specimen: Right arm arteriovenous fistula pseudoaneurysms were sent to pathology and excess skin that had previously overlie the pseudoaneurysms was discarded. Indication: The patient is a 55-year-old male with a history of end-stage renal disease and central venous occlusion who is on hemodialysis through a right brachiocephalic arteriovenous fistula. He presented with 2 large pseudoaneurysms with ulcerated skin overlying the pseudoaneurysms. There was worry of hemorrhage from the ulceration so he was offered a revision with excision of the pseudoaneurysms and an interposition graft. While the wound was healing he will require permacath for dialysis. He was given the risk, benefits, and alternative procedures and consented to the procedure. Description of Procedure: The patient was brought to the operating room and laid in supine position. After a timeout was performed general endotracheal esthesia was achieved and his right arm was prepped and draped in normal sterile fashion. A longitudinal incision was created extending from the normal venous portion of his fistula, across the areas of pseudoaneurysm, to the normal arterial inflow of his fistula. A combination of cautery and sharp dissection was used to dissect down to the arterial inflow of the fistula. Once the normal portion of the arterial inflow of the fistula was dissected circumferentially was controlled the vessel loop. I then used a combination of cautery and sharp dissection to dissect circumferentially around the portion of the venous outflow of the fistula and controlled this with a vessel loop. I then dissected the pseudoaneurysm portion of the fistula free from the overlying skin and then dissected it circumferentially and freed from the surrounding soft tissue. Once I had the entire area dissected free I used angled DeBakey clamps to clamp both the venous outflow and the arterial inflow and then transected the fistula at both ends leaving a cuff to sew the anastomosis. I then passed off the pseudoaneurysms as a specimen. I used a Yelena-Wick tunneler to tunnel along the lateral aspect of the wound and then pulled a, rifampin soaked, 7 mm Bovine Artegraft through the tunnel. I infused the graft with heparinized saline to ensure that it had not been kinked or twisted and then beveled the end of the graft in preparation for the arterial anastomosis. I beveled the arterial inflow of the fistula and then created an end-to-end anastomosis with two 5-0 Prolene's in running fashion. After creating the anastomosis I clamped the graft just distal to the anastomosis and then released the clamp from the fistula to check for hemostasis. Hemostasis on the anastomosis was achieved with 6-0 Prolene in interrupted fashion. I then cut the graft to length and beveled the and of the graft as well as the venous portion of the fistula and created an end-to-end anastomosis using two 5-0 Prolene's in running fashion. Prior to completing the anastomosis I flashed the arterial inflow as well as the venous outflow and then flushed the anastomosis with heparinized saline to clear any thrombus. I then completed the anastomosis and released all clamps allowing flow through the graft which had a palpable thrill. I used curved Mayos to trim the excess skin which contain the ulcerated portion and then used a combination of quick clot and Vistaseal to achieve hemostasis within the wound. Once hemostasis was achieved I anesthetized the wound with 0.5% Marcaine and closed in 2 layers using 3-0 Vicryl in running fashion the deep dermal layer and 4-0 Monocryl in running fashion the subcuticular layer and then dressed with Dermabond. I then placed a Telfa over the incision and and wrapped the upper arm with a 4 inch Rudy bandage to apply some pressure and prevent hematoma formation. I then turned my attention to placement of the permacath. The sterile field was broken and the patient's right groin and thigh were then prepped and draped in normal sterile fashion. Ultrasound was used to identify the right common femoral vein and confirm patency. Once patency was confirmed an 11 blade was used to make a small stab incision and then a 21-gauge micropuncture needle was used with ultrasound guidance to the right common femoral vein. A 0.018 micropuncture wire was advanced to the vein after removing the needle a micropuncture sheath was placed by Seldinger technique. The inner cannula and wire were removed and a 0.035 J-wire was advanced to the vein under fluoroscopy. The micropuncture sheath was removed and the tract was serially dilated until the 15 Polish peel-away sheath was placed by Janna talavera. A 44 cm Palindrome Permacath was then advanced into position with the distal tip at the cavoatrial junction. I then created a stab incision in the right lateral thigh and used a tunneler to tunnel from the exit site on the lateral thigh to the entry site at the groin. I removed the tip of the tunneler and after clamping the permacath cut position #1 and connected the permacath to the tunneler. I removed the clamp from the permacath and pulled the permacath through the tunnel. I reclamped the permacath and then cut the catheter position #2. I then connected the hub to the permacath and both ports easily aspirated and flushed. I then primed the permacath with the appropriate amount heparin. I closed the groin entry site with a 4-0 Monocryl in interrupted subcuticular fashion and then dressed with Dermabond. I secured the permacath in position with a 2-0 Ethilon and then dressed with a sterile dressing. The patient tolerated both procedures well. All sponge, needle, and instrument counts were correct. The patient was taken to the recovery area in stable condition.
--- NOTE | 2020-12-13 13:15 | Short Stay Summary ---
Short Stay Documentation Date of service: 12/13/20 Narrative H&P: See H&P - History H&P: obtained from office - Allergies and Medications Current Medications: Allergies No Known Allergies Allergy (Verified 12/09/20 16:05) Home Medications Medication Instructions Recorded Confirmed Last Taken Type Metoprolol [Lopressor TAB] 50 mg PO BID #60 tablet 07/06/17 12/12/20 12/13/20 04:45 Rx amLODIPine 10 mg PO DAILY #30 tablet 07/06/17 12/12/20 12/13/20 04:45 Rx Aspirin [Adult Aspirin] 81 mg PO DAILY 08/08/18 12/12/20 12/12/20 History cloNIDine [Catapres] 0.3 mg PO BID 09/22/18 12/12/20 12/13/20 04:45 History NIFEdipine [Nifedipine] 20 mg PO BID 12/12/20 12/12/20 12/13/20 04:45 History Sevelamer Carbonate [Renvela] 800 mg PO TIDWM 12/12/20 12/12/20 12/12/20 History Active Medications Cefazolin Sodium (Cefazolin/Sterile Water 2 Gm/20 Ml Syringe) 2 gm IV PREOP NR Stop: 12/13/20 20:00 Fentanyl (Fentanyl 100 Mcg/2 Ml Inj) 50 mcg IV Q5MIN PRN PRN Reason: Pain , Severe (7-10) Stop: 12/13/20 23:00 Sodium Chloride (Nacl 0.9% 1000 Ml) 1,000 mls @ 42 mls/hr IV DIRECT STEPAN Stop: 12/13/20 23:59 Last Admin: 12/13/20 06:55 Dose: 42 mls/hr Documented by: Midazolam HCl (Midazolam 2 Mg/2 Ml Inj) 2 mg IV PREOP NR Stop: 12/13/20 23:59 - Brief post op/procedure progress note Date of procedure: 12/13/20 Pre-op diagnosis: Complications of Dialysis Access Post-op diagnosis: same Procedure: 1. Revision of Right Arm Arteriovenous Fistula with Excision of Pseudoaneurysms and Repair with Interposition 7 mm Bovine Artegraft 2. Ultrasound-Guided Access Right Common Femoral Vein 3. Placement of 44 cm Palindrome Permacath 4. Radiologic Supervision with Interpretation Anesthesia: AIDAA Surgeon: RANDALL DAVIS Estimated blood loss: other (150 mL) Pathology: list (Right arm arteriovenous fistula pseudoaneurysms were sent to pathology) Condition: stable - Disposition Condition at discharge: Good Disposition: 01 HOME / SELF CARE / HOMELESS Short Stay Discharge Plan Activity: other (No heavy lifting with right arm for 2 weeks.) Wound: open to air, keep clean and dry, remove dressing (Okay to remove the Rudy bandage and underlying dressing in 48 hours.), other (Okay to wash the right arm wound with soap and water but do not soak in water for 2 weeks. Do not shower until the permacath is removed.) Follow up with: RANDALL DAVIS MD [Staff Physician] - 7 Days Prescriptions: HYDROcodone/APAP 7.5-325 [[place] 7.5/325] 1 each PO Q6HR PRN #40 tablet PRN Reason: Pain
[2020-12-13] MEDS ORDERED: HYDROcodone/ACETAMINOPHEN 7.5-325MG TAB PO PRN (14:01)
[2020-12-13 14:32] VITALS: BP 123/71
--- NOTE | 2020-12-14 13:41 | Fluoroscopy Report ---
INTRAOPERATIVE FLUOROSCOPY: ABDOMEN INDICATION: REVISION OF RT ARM AV FISTULA/GRAFT.. Placement of right common femoral vein PermCath. TECHNIQUE: Intraoperative spot images were obtained during the procedure. FINDINGS: A right common femoral vein PermCath terminates at the level of T10. Please see the report for the pr ocedure for further details. Fluoroscopy Time: 0.3 minutes. Fluoroscopy Images: 3. Signer Name: Raul Esparza MD Signed: 12/14/2020 1:37 PM Workstation Name: [id number]
== END 2020-12-13 15:05 | disposition home or self-care (01) ==
LOC: OR 06:03
PROVIDERS: ATTEND Surgery Vascular Surgery
DX: I13.2 Hypertensive heart and chronic kidney disease with heart failure and with stage 5 chronic kidney disease, or end stage renal disease (principal); I50.9 Heart failure, unspecified; N18.6 End stage renal disease; I25.10 Atherosclerotic heart disease of native coronary artery without angina pectoris; G47.30 Sleep apnea, unspecified; Z99.2 Dependence on renal dialysis; Z79.82 Long term (current) use of aspirin; Z79.899 Other long term (current) drug therapy; Z98.890 Other specified postprocedural states
CPT/HCPCS: 36415; 36833; 77001; 80048; 85027; 86850; 86900; 86901; 88304; 88311; C1750; C1768; C1769; J0690; J1644; J2370; J2405; J2704; J2710; J3010; J3490; J7030; J7040; J7050; J2250